=== PATIENT | female | born 1990 | race Two or more races ===

== ENCOUNTER 2016-08-30 10:43 | Emergency (ER) | payer OTHER ==
[~2016-08-30] VITALS: Ht 165.1 cm; Wt 77.0 kg
[~2016-08-30 10:43] MED LIST: FER325 PO; FOLI-49 PO; LEVO300T PO; NAPR-260 PO; PRENAT PO
[2016-08-30 10:46] VITALS: Ht 165.1 cm; Wt 77.0 kg
== END 2016-08-30 14:36 | disposition left against medical advice (07) ==
LOC: FTE 10:43
DX: Z53.21 Procedure and treatment not carried out due to patient leaving prior to being seen by health care provider (principal)

== ENCOUNTER 2016-08-31 12:55 | Day surgery (SDC) | payer OTHER ==
[~2016-08-31] VITALS: Ht 152.4 cm; Wt 76.0 kg
[2016-08-31] VITALS (18 sets, daily range): BP systolic 135–173; BP diastolic 78–93; PULSE 75–104; RESP 14–23; Ht 152.4 cm; Wt 76.0 kg
[~2016-08-31 12:55] MED LIST changes: +CEFAZOLIN 2 GM/50 ML (PMX) 50 ML IVPB ONE; +SOD CHLORIDE 0.9% 1,000 ML IV ONE
[2016-08-31] MEDS ORDERED: BUPIVACAINE 0.25% (MPF) 30 ML INJ ONE (15:24)
[2016-08-31] MEDS ORDERED: GLYCOPYRROLATE 0.4 MG INJ ONE ×2 (15:26→15:47)
[2016-08-31] MEDS ORDERED: LIDOCAINE 2% (SDV) 5 ML INJ ONE (15:26)
[2016-08-31] MEDS ORDERED: ROCURONIUM 50 MG INJ ONE (15:26)
[2016-08-31] MEDS ORDERED: SUCCINYLCHOLINE CHLORIDE 100 MG/5 ML SYG IV ONE (15:26)
[2016-08-31] MEDS ORDERED: NEOSTIGMINE 3 MG/3 ML SYRINGE ONE ×2 (15:26→15:47)
[2016-08-31] MEDS ORDERED: PROPOFOL 20 ML ONE (15:26)
[2016-08-31] MEDS ORDERED: MEPERIDINE 100 MG INJ ONE (15:29)
[2016-08-31] MEDS ORDERED: CEFAZOLIN 1 GM INJ ONE ×2 (15:47)
[2016-08-31] MEDS ORDERED: ONDANSETRON 4 MG INJ ONE (15:47)
[2016-08-31] MEDS ORDERED: METOCLOPRAMIDE 10 MG INJ ONE (15:47)
[2016-08-31] MEDS ORDERED: HYDROCODONE/APAP (5/325) TAB PO ONE (16:30)
[2016-08-31] MEDS: morphine (1 MG/ML) 10ML SYRINGE IV PRN ×2 (16:54→17:04)
[2016-08-31] MEDS ORDERED: METOCLOPRAMIDE 10 MG INJ IV PRN (17:00)
[2016-08-31] MEDS ORDERED: FENTAnyl 50 MCG/ML VIAL IV PRN ×2 (17:00)
[2016-08-31] MEDS ORDERED: HYDROmorphONE (0.2 MG/ML) 10ML SYG IV PRN ×2 (17:00)
[2016-08-31] MEDS ORDERED: morphine (1 MG/ML) 10ML SYRINGE IV PRN (17:00)
[2016-08-31] MEDS ORDERED: MIDAZOLAM 1 MG/ML 2 ML INJ IV PRN (17:00)
[2016-08-31] MEDS ORDERED: MEPERIDINE 25 MG INJ IV PRN (17:00)
[2016-08-31] MEDS ORDERED: EPHEDrine SULFATE 50 MG/5 ML SYG IV PRN (17:00)
[2016-08-31] MEDS ORDERED: ONDANSETRON 4 MG INJ IV PRN (17:00)
[2016-08-31] MEDS ORDERED: LABETALOL HCL 20MG INJ IV PRN (17:00)
[2016-08-31] MEDS ORDERED: hydrALAzine 20 MG INJ IV PRN (17:00)
[2016-08-31] MEDS ORDERED: DIPHENHYDRAMINE 50 MG INJ IV PRN (17:00)
--- NOTE | 2016-08-31 17:22 | OPR ---
DATE OF OPERATION: 08/31/2016 INDICATION: This is a 26-year-old female with symptomatic gallstones. She requests surgical excisi on. Risks, alternatives, benefits, and personnel were discussed with the patient. Patient expresse d understanding and consents to the operation. PREOPERATIVE DIAGNOSIS: Symptomatic gallstones. POSTOPERATIVE DIAGNOSIS: Symptomatic gallstones. OPERATION: Laparoscopic cholecystectomy. SURGEON: Lety Samuels MD NET FRONT END DEVELOPER: Kristian Mendez MD SPECIMENS: Gallbladder. COMPLICATIONS: None. ANESTHESIA: General. PROCEDURE: The patient was taken to the OR and prepped and draped in the usual sterile fashion. Farias rgical timeout was performed. IV antibiotics were given. Infraumbilical transverse incision is mad e with a 15 blade. Dissection cautery was taken to the fascia which was divided with curved [place] sc issors. An 0 Vicryl U-stitch was placed in the fascia. Balloon Kasie trocar was used. Pneumoperi toneum was established. Midepigastric 12 mm optical trocar and right upper quadrant and right upper flank 5 mm optical trocars placed under direct visualization. Upon initial inspection, there are a dhesions to the gallbladder which were taken down bluntly. The cystic duct was identified. The cri tical view was established. The cystic duct and cystic artery are divided using a 35 mm Casey vas cular load stapler, two fires. Gallbladder was taken off the gallbladder bed. There was good hemos tasis. Additional clips were placed for reinforcement. The gallbladder was retrieved using EndoCat ch bag. Ports were removed under direct visualization, 0 Vicryl U-stitch was tied down. Skin was c losed using skin rivas. Local anesthesia was injected and dry dressings were applied. Dictated By: LETY SAMUELS MD SB/NTS Conf#: [id number] DID#: [id number] CC: KRISTIAN MENDEZ MD;*EndCC*
== END 2016-08-31 18:12 | disposition home or self-care (01) ==
LOC: SDS 12:55
PROVIDERS: ATTEND Surgery
DX: K80.10 Calculus of gallbladder with chronic cholecystitis without obstruction (principal)
CPT/HCPCS: 47562; 84703; 88304; J0330; J0690; J2175; J2270; J2405; J2710; J2765; Z7512; Z7610

== ENCOUNTER 2016-09-01 12:40 | Emergency (ER) | payer OTHER ==
[~2016-09-01] VITALS: Wt 77.1 kg
[~2016-09-01 12:40] MED LIST changes: -CEFAZOLIN 2 GM/50 ML (PMX) 50 ML IVPB ONE; -SOD CHLORIDE 0.9% 1,000 ML IV ONE
[2016-09-01] MEDS ORDERED: ONDANSETRON 4 MG INJ IV STA (14:26)
[2016-09-01] MEDS ORDERED: morphine 4 MG/ML VIAL IV STA (14:26)
[2016-09-01] MEDS ORDERED: IBUPROFEN 600 MG TAB PO ONE (14:30)
[2016-09-01] MEDS ORDERED: SOD CHLORIDE 0.9% 1,000 ML IV ONE (15:00)
[2016-09-01 15:14] LABS: INR 0.95; PROTIME 12.7 Sec (12.2-14.2)
[2016-09-01 15:15] LABS: PARTIAL THROMBOPLASTIN TIME 33.2 Sec (25.0-35.0)
[2016-09-01 15:19] LABS: ALBUMIN 4.3 g/dl (3.3-4.9)
[2016-09-01 15:20] LABS: POTASSIUM 3.8 mmol/L (3.5-5.1)
[2016-09-01 15:22] LABS: ALBUMIN/GLOBULIN RATIO 1.04; BILIRUBIN,INDIRECT 0.4 mg/dl (0-1.1); BILIRUBIN,TOTAL 0.4 mg/dl (0.2-1.3); CREATININE 0.54 mg/dl (0.44-1.00); TOTAL PROTEIN 8.4 g/dl (6.1-8.1)
[2016-09-01 15:23] LABS: CALCIUM 9.6 mg/dl (8.4-10.2)
[2016-09-01 15:38] LABS: BASOPHILS % 0.2 % (0.0-2.0); EOSINOPHILS # 0.1 10^3/ul (0.0-0.5); EOSINOPHILS % 0.8 % (0.0-7.0); HEMATOCRIT 41.7 % (37.0-47.0); HEMOGLOBIN 14.2 g/dl (12.0-16.0); LYMPHOCYTES # 2.1 10^3/ul (0.8-2.9); LYMPHOCYTES % 16.2 % (15.0-51.0); MEAN CORPUSCULAR HEMOGLOBIN 30.5 pg (29.0-33.0); MEAN CORPUSCULAR HGB CONC 34.2 g/dl (32.0-37.0); MEAN CORPUSCULAR VOLUME 89.3 fl (82.0-101.0); MEAN PLATELET VOLUME 10.1 fl (7.4-10.4); MONOCYTE # 0.9 10^3/ul (0.3-0.9); MONOCYTES % 6.7 % (0.0-11.0); NEUTROPHILS % 76.1 % (39.0-77.0); PLATELET COUNT 298 10^3/UL (140-440); RED BLOOD COUNT 4.66 10^6/ul (4.20-5.40); UNCORRECTED WBC 13.1 10^3/ul (4.8-10.8); WHITE BLOOD COUNT 13.1 10^3/ul (4.8-10.8)
[2016-09-01] MEDS ORDERED: SOD CHLORIDE 0.9% 100 ML ONE (15:52)
[2016-09-01] MEDS ORDERED: IOHEXOL 300MG/ML 150 ML BTL ONE (15:52)
[2016-09-01 15:55] LABS: CONDITION 1
--- NOTE | 2016-09-01 16:24 | RADRPT ---
PROCEDURE: CT Abdomen and Pelvis with contrast. CLINICAL INDICATION: Fever, pain, recent cholecystectomy TECHNIQUE: CT of the abdomen and pelvis was performed on a multi-detector scanner following the un complicated IV administration of 100 cc of Omnipaque 300. Coronal and sagittal images were reformat bj from the axial data set. One or more of the following dose reduction techniques were used: auto mated exposure control, adjustment of the mA and/or kV according to patient size, use of iterative reconstruction technique. CTDI = 19.46 mGy. DLP = 1161.3 mGy-cm. COMPARISON: None. FINDINGS: CT abdomen: Bibasilar atelectasis is noted. The heart size is normal, without pericardial effusion. Gallbladde r is surgically absent. Small amount of fluid is present within the gallbladder fossa, likely resid ual postoperative fluid. Small amount of free intraperitoneal air is present, likely residual posto perative gas. Liver, biliary tree, pancreas, spleen, adrenal glands and kidneys are unremarkable. No urolithiasis or obstructive uropathy is identified. The stomach is grossly unremarkable. There is no abdominal aortic aneurysm or dissection. There is no retroperitoneal lymphadenopathy. The priya hepatis region is clear. CT pelvis: No bowel obstruction or abscess is identified. There is no evidence of bowel perforation. The appe ndix is well visualized and normal. No diverticulosis, diverticulitis or colitis is identified. Ur inary bladder, uterus and adnexa are grossly unremarkable. Small amount of pelvic free fluid is pre sent, likely residual postoperative fluid. No pelvic mass or lymphadenopathy is identified. The surrounding osseous structures are unremarkable. No osteolytic or osteoblastic lesion is detect ed. IMPRESSION: 1. Small amount of residual postoperative free air and free fluid are identified, as described abov e, within normal limits given recent cholecystectomy. No evidence of abscess, significant hematoma, or bowel perforation is identified. RPTAT: QQ .Alonzo Mendiola MD, MD Date Time Electronically viewed and signed by .Alonzo Mendiola MD, MD on 09/01/2016 16:23 .R/
[2016-09-01 16:29] LABS: ADD UMIC YES; URINE BILIRUBIN (Dip) NEGATIVE (NEGATIVE); URINE BLOOD (Dip) TRACE (NEGATIVE); URINE COLOR LT. YELLOW (YELLOW); URINE GLUCOSE (Dip) NEGATIVE (NEGATIVE); URINE KETONES (Dip) NEGATIVE (NEGATIVE); URINE LEUKOCYTE ESTERASE (Dip) NEGATIVE (NEGATIVE); URINE NITRITE (Dip) NEGATIVE (NEGATIVE); URINE TOTAL PROTEIN (Dip) TRACE (NEGATIVE); URINE UROBILINOGEN (Dip) 0.2 E.U./dL (0.1-1.0)
[2016-09-01 16:53] LABS: URINE RBCS 0-2 /HPF (0)
[2016-09-01 16:54] LABS: BACTERIA,URINE RARE; SQUAMOUS EPITHELIAL CELL,UR MANY
--- NOTE | 2016-09-01 17:31 | RADRPT ---
PROCEDURE: XR Chest. CLINICAL INDICATION: Postop chest x-ray with shortness of breath and fever. TECHNIQUE: Single frontal view of the chest was obtained COMPARISON: No. FINDINGS: The soft tissues are normal. The bony elements are normal. The heart, left side aorta, cardiomedias tinal silhouette, pulmonary vasculature and hilar structures are normal. The lungs are clear. The co stophrenic angles are normal. There is a suboptimal inspiratory effort. No acute infiltrate is iden tified. IMPRESSION: 1. Normal chest x-ray. RPTAT:AAJJ Physician Namita Date Time Electronically viewed and signed by Pablo Rosales Physician on 09/01/2016 17:31 /
--- NOTE | 2016-09-01 18:21 | ERD ---
ER Documentation Chief Complaint Date/Time DATE: 09/01/16 TIME: 18:09 Chief Complaint POST OP CHOLECYSTECTOMY YESTERDAY. FEVER AND MILD SOB . NO COUGHING HPI 26-year-old female complaining of fever and abdominal pain. Fever started today. Patient stated that she had cholecystectomy yesterday. She was given [place] for pain and he has not helped. The pain is worse when she is taking deep breath. Patient also complaining of "bleeding" from her surgical wound. She had vomited twice earlier today. Denies cough or shortness of breath. Denies dysuria. ROS All systems reviewed and are negative except as per history of present illness. Medications Home Meds Active Scripts Naproxen* (Naprosyn*) 500 Mg Tablet, 500 MG PO BID Y for PAIN AND/OR INFLAMMATION, #30 TAB Prov:TOBIAS GILBERT PA-C 07/10/16 Reported Medications Levothyroxine Sodium (Levothyroxine Sodium) 300 Mcg Tablet, 150 MCG PO BEFORE BREAKFAST, #30 TAB 05/22/16 Multivit/Min/Fol Ac/Iron/Pren* ( S*) 1 Tab Tab, 1 TAB PO DAILY, TAB 05/22/16 Ferrous Sulfate* (Ferrous Sulfate*) 325 Mg Tabec, 325 MG PO DAILY, TAB 05/22/16 Folic Acid* (Folic Acid*) 1 Mg Tablet, 1 MG PO DAILY, TAB 05/22/16 Allergies Allergies: Coded Allergies: No Known Allergies (Verified Allergy, Unknown, 08/31/16) PMhx/Soc History of Surgery: Yes (josie) Anesthesia Reaction: No Hx Neurological Disorder: No Hx Respiratory Disorders: No Hx Cardiac Disorders: Yes (HX HTN-- NOT ON MEDS) Hx Psychiatric Problems: No Hx Miscellaneous Medical Probl: Yes Hx Alcohol Use: No Hx Substance Use: No Hx Tobacco Use: No Smoking Status: Never smoker Physical Exam Vitals Vital Signs Date Time Temp Pulse Resp B/P Pulse Ox O2 Delivery O2 Flow Rate FiO2 09/01/16 12:52 101.2 120 22 140/85 97 Physical Exam General impression: Well-developed, well-nourished. Alert, oriented, appears to be in pain. Head: Normocephalic, atraumatic. Neck: Supple, nontender. No lymphanopathy. No nuchal rigidity. Respiration: Normal respiratory effort. Lungs clear to auscultate bilaterally. No wheezes, rales or rhonchi. Cardiovascular: Regular rate and rhythm. No murmurs or extra heart sounds. Abdomen: Slight serosanguineous discharge noted from the surgical wound. Abdomen diffusely tender. No masses or organomegaly. Bowel sounds normal. Neuro: Mental status normal, speech normal. RN COMPLIANCE grossly intact. Skin: Normal turgor. No rash or lesions. Psych: Normal mood and affect. Result Diagram: 09/01/16 1438 09/01/16 1438 Results 24 hrs Laboratory Tests Test 09/01/16 14:38 09/01/16 14:49 09/01/16 15:05 Activated Partial Thromboplast Time 33.2Sec Alanine Aminotransferase (ALT/SGPT) 484IU/L Albumin 4.3g/dl Albumin/Globulin Ratio 1.04 Alkaline Phosphatase 136IU/L Anion Gap 19 Aspartate Amino Transf (AST/SGOT) 242IU/L Basophils # 0.010^3/ul Basophils % 0.2% Blood Urea Nitrogen 7mg/dl Calcium Level 9.6mg/dl Carbon Dioxide Level 27mmol/L Chloride Level 99mmol/L Creatinine 0.54mg/dl Direct Bilirubin 0.00mg/dl Eosinophils # 0.110^3/ul Eosinophils % 0.8% Globulin 4.10g/dl Glucose Level 119mg/dl Hematocrit 41.7% Hemoglobin 14.2g/dl INR International Normalized Ratio 0.95 Indirect Bilirubin 0.4mg/dl Lipase 196U/L Lymphocytes # 2.110^3/ul Lymphocytes % 16.2% Mean Corpuscular Hemoglobin 30.5pg Mean Corpuscular Hemoglobin Concent 34.2g/dl Mean Corpuscular Volume 89.3fl Mean Platelet Volume 10.1fl Monocytes # 0.910^3/ul Monocytes % 6.7% Neutrophils # 10.010^3/ul Neutrophils % 76.1% Nucleated Red Blood Cells # 0.010^3/ul Nucleated Red Blood Cells % 0.0/100WBC Platelet Count 69349^3/UL Potassium Level 3.8mmol/L Prothrombin Time 12.7Sec Prothrombin Time Ratio 1.0 Red Blood Count 4.6610^6/ul Red Cell Distribution Width 13.0% Sodium Level 141mmol/L Total Bilirubin 0.4mg/dl Total Protein 8.4g/dl White Blood Count 13.110^3/ul Lactic Acid Level 1.1mmol/L Urine Bacteria RARE Urine Bilirubin NEGATIVE Urine Clarity CLEAR Urine Color LT. YELLOW Urine Glucose NEGATIVE% Urine Hemoglobin TRACE Urine Ketones NEGATIVE Urine Leukocyte Esterase NEGATIVE Urine Microscopic RBC 0-2/HPF Urine Microscopic WBC 2-5/HPF Urine Nitrite NEGATIVE Urine Specific [place] 1.010 Urine Squamous Epithelial Cells MANY Urine Total Protein TRACE Urine Urobilinogen 0.2 E.U./dL Urine pH 6.0 Current Medications Medications (Trade) Dose Ordered Sig/Riley Route PRN Reason Start Time Stop Time Status Last Admin Dose Admin Morphine Sulfate (morphine) 4 mg ONCE STAT IV 09/01/16 14:26 09/01/16 14:29 DC 09/01/16 14:43 Ondansetron HCl (Zofran Inj) 4 mg ONCE STAT IV 09/01/16 14:26 09/01/16 14:29 DC 09/01/16 14:43 Ibuprofen 600 mg 600 mg ONCE ONCE PO 09/01/16 14:30 09/01/16 14:31 DC 09/01/16 14:43 Sodium Chloride (NS) 1,000 ml @ 1,000 mls/hr Q1H ONCE IV 09/01/16 15:00 09/01/16 15:59 DC 09/01/16 14:47 IV Flush 10 ml 10 ml STK-MED ONCE .ROUTE 09/01/16 15:52 09/01/16 15:53 DC 09/01/16 16:18 Sodium Chloride (NS) 100 ml @ ud STK-MED ONCE .ROUTE 09/01/16 15:52 09/01/16 15:53 DC 09/01/16 16:18 Iohexol (Omnipaque 300mg/ ml) 150 ml STK-MED ONCE .ROUTE 09/01/16 15:52 09/01/16 15:53 DC 09/01/16 16:19 Procedures/MDM 26-year-old female who is 1 day post cholecystectomy present ED with fever and postop abdominal pain. Her temperature on arrival is 101.2. Ibuprofen given to the patient for fever reduction CBC showed an elevated white blood cell count at 13.1, otherwise unremarkable. LFTs are elevated, CMP otherwise unremarkable. Lipase negative. Lactate 1.1. Patient is not septic. UA is negative, chest x-ray negative. CT abdomen and pelvis with IV contrast showed a small amount of residual postoperative free air and free fluid, within normal limits given recent cholecystectomy. No evidence of abscess, significant hematoma or bowel perforation. Patient was given morphine and Zofran IV in the ED. After which, patient reports relief of pain, she appears to be much more comfortable. I have consulted with both patient's surgeon Dr. Samuels, and Dr. Salazar in the ED 1. Both agree that patient's testing results are within normal given her 1 day postop status. Patient may be discharged home for outpatient follow-up. Patient is advised to follow-up with her PCP and her surgeon. Departure Diagnosis: Primary Impression: Fever Fever type: unspecified Qualified Code: R50.9 - Fever, unspecified fever cause Additional Impression: Post-op pain Condition: Stable Patient Instructions: Fever Control (Adult), Post Op Wound Check, Pain Referrals: Kecia SAMUELS Additional Instructions: Call your primary care doctor TOMORROW for an appointment during the next 2-3 days.See the doctor sooner or return here if your condition worsens before your appointment time. MARY KAY ARANGO NP Sep 01, 2016 18:21
[2016-09-01 18:22] VITALS: BP 120/72; PULSE 96; RESP 18; TEMP 98.6
== END 2016-09-01 18:23 | disposition home or self-care (01) ==
LOC: FTE 12:40
DX: R50.9 Fever, unspecified (principal); G89.18 Other acute postprocedural pain; I10 Essential (primary) hypertension; R11.10 Vomiting, unspecified; R06.02 Shortness of breath; E03.9 Hypothyroidism, unspecified
CPT/HCPCS: 36415; 71010; 74177; 80053; 81001; 83605; 83690; 85025; 85610; 85730; 87040; 87086; 96374; 96375; J2270; J2405; Q9967; Z7502; Z7610; 81003

== ENCOUNTER 2016-09-06 23:13 | Inpatient (IN) | payer OTHER ==
[~2016-09-06] VITALS: Ht 335.3 cm; Wt 76.0 kg
[2016-09-06] MEDS ORDERED: morphine 4 MG/ML VIAL IV STA (23:17)
[2016-09-06] MEDS ORDERED: ONDANSETRON 4 MG INJ IV STA (23:17)
[2016-09-06] MEDS ORDERED: SOD CHLORIDE 0.9% 1,000 ML IV STA (23:17)
[2016-09-06] MEDS ORDERED: RANI150T5 PO (23:31)
[2016-09-07 00:07] LABS: ALBUMIN 4.2 g/dl (3.3-4.9); POTASSIUM 4.2 mmol/L (3.5-5.1)
[2016-09-07 00:09] LABS: ALBUMIN/GLOBULIN RATIO 0.97; BILIRUBIN,INDIRECT 0.1 mg/dl (0-1.1); BILIRUBIN,TOTAL 0.1 mg/dl (0.2-1.3); CREATININE 0.46 mg/dl (0.44-1.00); TOTAL PROTEIN 8.5 g/dl (6.1-8.1)
[2016-09-07 00:10] LABS: CALCIUM 10.1 mg/dl (8.4-10.2)
[2016-09-07 00:24] LABS: BASOPHILS % 0.2 % (0.0-2.0); EOSINOPHILS # 0.1 10^3/ul (0.0-0.5); EOSINOPHILS % 1.1 % (0.0-7.0); HEMATOCRIT 37.5 % (37.0-47.0); HEMOGLOBIN 12.9 g/dl (12.0-16.0); LYMPHOCYTES # 1.7 10^3/ul (0.8-2.9); LYMPHOCYTES % 20.2 % (15.0-51.0); MEAN CORPUSCULAR HEMOGLOBIN 30.5 pg (29.0-33.0); MEAN CORPUSCULAR HGB CONC 34.4 g/dl (32.0-37.0); MEAN CORPUSCULAR VOLUME 88.5 fl (82.0-101.0); MEAN PLATELET VOLUME 9.5 fl (7.4-10.4); MONOCYTE # 0.6 10^3/ul (0.3-0.9); MONOCYTES % 6.9 % (0.0-11.0); NEUTROPHIL # 6.1 10^3/ul (1.6-7.5); NEUTROPHILS % 71.6 % (39.0-77.0); PLATELET COUNT 361 10^3/UL (140-440); RED BLOOD COUNT 4.24 10^6/ul (4.20-5.40); RED CELL DISTRIBUTION WIDTH 12.5 % (11.5-14.5); UNCORRECTED WBC 8.6 10^3/ul (4.8-10.8); WHITE BLOOD COUNT 8.6 10^3/ul (4.8-10.8)
[2016-09-07 00:25] LABS: CONDITION 1
[2016-09-07 01:13] LABS: ADD UMIC NO; URINE BILIRUBIN (Dip) NEGATIVE (NEGATIVE); URINE BLOOD (Dip) NEGATIVE (NEGATIVE); URINE COLOR LT. YELLOW (YELLOW); URINE GLUCOSE (Dip) NEGATIVE (NEGATIVE); URINE KETONES (Dip) NEGATIVE (NEGATIVE); URINE LEUKOCYTE ESTERASE (Dip) NEGATIVE (NEGATIVE); URINE NITRITE (Dip) NEGATIVE (NEGATIVE); URINE TOTAL PROTEIN (Dip) NEGATIVE (NEGATIVE); URINE UROBILINOGEN (Dip) 0.2 E.U./dL (0.1-1.0)
--- NOTE | 2016-09-07 01:46 | ERA ---
ER Documentation Chief Complaint Date/Time DATE: 09/07/16 TIME: 01:45 Chief Complaint bilat flank pain,GB surgery last 08/31/16 HPI This is a 25 mg of bilateral flank pain radiating to upper abdomen for the past 24 hours. Pain is mild to moderate in intensity. Denies any fevers or chills. Denies any other current complaints. Patient is one-week status post cholecystectomy. No vomiting. ROS All systems reviewed and are negative except as per history of present illness. Medications Home Meds Active Scripts Naproxen* (Naprosyn*) 500 Mg Tablet, 500 MG PO BID Y for PAIN AND/OR INFLAMMATION, #30 TAB Prov:TOBIAS GILBERT PA-C 07/10/16 Reported Medications Ranitidine Hcl* (Ranitidine Hcl*) 150 Mg Tablet, 150 MG PO Q12 for GASTROINTESTINAL UPSET, #60 TAB 09/06/16 Levothyroxine Sodium (Levothyroxine Sodium) 300 Mcg Tablet, 150 MCG PO BEFORE BREAKFAST, #30 TAB 05/22/16 Multivit/Min/Fol Ac/Iron/Pren* ( S*) 1 Tab Tab, 1 TAB PO DAILY, TAB 05/22/16 Ferrous Sulfate* (Ferrous Sulfate*) 325 Mg Tabec, 325 MG PO DAILY, TAB 05/22/16 Folic Acid* (Folic Acid*) 1 Mg Tablet, 1 MG PO DAILY, TAB 05/22/16 Allergies Allergies: Coded Allergies: No Known Allergies (Verified Allergy, Unknown, 09/06/16) PMhx/Soc History of Surgery: Yes (josie) Anesthesia Reaction: No Hx Neurological Disorder: No Hx Respiratory Disorders: No Hx Cardiac Disorders: Yes (HX HTN-- NOT ON MEDS) Hx Psychiatric Problems: No Hx Miscellaneous Medical Probl: Yes Hx Alcohol Use: No Hx Substance Use: No Hx Tobacco Use: No Smoking Status: Never smoker Physical Exam Vitals Vital Signs Date Time Temp Pulse Resp B/P Pulse Ox O2 Delivery O2 Flow Rate FiO2 09/06/16 23:16 97.5 71 18 131/73 99 Physical Exam Const: [] Head: Atraumatic Eyes: Normal Conjunctiva ENT: Normal External Ears, Nose and Mouth. Neck: Full range of motion..~ No meningismus. Resp: Clear to auscultation bilaterally Cardio: Regular rate and rhythm, no murmurs Abd: Soft, non tender, non distended. Normal bowel sounds Skin: No petechiae or rashes Back: No midline or flank tenderness Ext: No cyanosis, or edema Neur: Awake and alert Psych: Normal Mood and Affect Result Diagram: 09/06/16 2345 09/06/16 2345 Results 24 hrs Laboratory Tests Test 09/06/16 23:45 09/07/16 00:30 Alanine Aminotransferase (ALT/SGPT) 556IU/L Albumin 4.2g/dl Albumin/Globulin Ratio 0.97 Alkaline Phosphatase 532IU/L Anion Gap 21 Aspartate Amino Transf (AST/SGOT) 602IU/L Basophils # 0.010^3/ul Basophils % 0.2% Blood Urea Nitrogen 8mg/dl Calcium Level 10.1mg/dl Carbon Dioxide Level 26mmol/L Chloride Level 96mmol/L Creatinine 0.46mg/dl Direct Bilirubin 0.00mg/dl Eosinophils # 0.110^3/ul Eosinophils % 1.1% Globulin 4.30g/dl Glucose Level 158mg/dl Hematocrit 37.5% Hemoglobin 12.9g/dl Indirect Bilirubin 0.1mg/dl Lipase 558U/L Lymphocytes # 1.710^3/ul Lymphocytes % 20.2% Mean Corpuscular Hemoglobin 30.5pg Mean Corpuscular Hemoglobin Concent 34.4g/dl Mean Corpuscular Volume 88.5fl Mean Platelet Volume 9.5fl Monocytes # 0.610^3/ul Monocytes % 6.9% Neutrophils # 6.110^3/ul Neutrophils % 71.6% Nucleated Red Blood Cells # 0.010^3/ul Nucleated Red Blood Cells % 0.0/100WBC Platelet Count 24228^3/UL Potassium Level 4.2mmol/L Red Blood Count 4.2410^6/ul Red Cell Distribution Width 12.5% Sodium Level 139mmol/L Total Bilirubin 0.1mg/dl Total Protein 8.5g/dl White Blood Count 8.610^3/ul Urine Bilirubin NEGATIVE Urine Clarity CLEAR Urine Color LT. YELLOW Urine Glucose NEGATIVE% Urine Hemoglobin NEGATIVE Urine Ketones NEGATIVE Urine Leukocyte Esterase NEGATIVE Urine Nitrite NEGATIVE Urine Specific [place] <=1.005 Urine Total Protein NEGATIVE Urine Urobilinogen 0.2 E.U./dL Urine pH 5.5 Current Medications Medications (Trade) Dose Ordered Sig/Riley Route PRN Reason Start Time Stop Time Status Last Admin Dose Admin Sodium Chloride (NS) 1,000 ml @ 1,000 mls/hr Q1H STAT IV 09/06/16 23:17 09/07/16 00:16 DC 09/06/16 23:59 Morphine Sulfate (morphine) 4 mg ONCE STAT IV 09/06/16 23:17 09/06/16 23:18 DC 09/06/16 23:54 Ondansetron HCl (Zofran Inj) 4 mg ONCE STAT IV 09/06/16 23:17 09/06/16 23:18 DC 09/06/16 23:53 Procedures/MDM Medical decision-makin female looks really have gallstone pancreatitis with elevation of lipase along with elevation of LFTs. Patient will be admitted to hospitalist for a GI consult. Departure Diagnosis: Primary Impression: Choledocholithiasis Additional Impression: Pancreatitis Qualified Code: K85.90 - Acute pancreatitis, unspecified complication status, unspecified pancreatitis type Condition: Serious ALBERTO PHOENIX Sep 07, 2016 01:46
--- NOTE | 2016-09-07 02:55 | RADRPT ---
PROCEDURE: CT ABDOMEN/PELVIS WITHOUT CONTRAST CLINICAL INDICATION: 26-year-old female with abdominal pain. TECHNIQUE: The study was performed utilizing a [employer] VCT 64-slice CT scanner. Direct axia l sections were obtained through the abdomen and pelvis without the use of intravenous contrast mate rial. Sagittal and coronal reformations were obtained. Automated exposure control and iterative emely nstruction techniques were utilized for this examination. The [facility] CTD/vol = 16.4 mGy; Total Exam DLP = 973.0 mGy-cm. COMPARISON: CT abdomen/pelvis September 01, 2016. FINDINGS: There is minimal bibasilar subsegmental atelectasis. There is no evidence for significant pleural ef fusion. The liver has a normal size and contour without focal areas of abnormal density. No intrahe patic nor extrahepatic biliary ductal dilatation is seen. Surgical clips are seen within the gallbla dder fossa from prior cholecystectomy. There is minimal residual infiltration and fluid which has d ecreased in the interval. The pancreas is without areas of abnormal attenuation. The spleen is iden tified and has a normal size without abnormal density. The adrenal glands are unremarkable. The kidn eys are without abnormal density. No hydroureteronephrosis nor nephroureterolithiasis is evident. Th e urinary bladder contains urine. Surgical clips are seen within the right upper and midline ventral abdominal wall with minimal subcutaneous gas and the patient's recent surgery. Surgical clips are seen within the periumbilical region with a small residual linear focus of fluid collection measuring approximately 1.2 x 3.2 x 1.5 cm most likely representing a postoperative seroma without i nterval change. There is minimal residual gas identified within the left lower rectus sheath region on axial image 3-141. There is mild retained stool within the ascending and sigmoid colon without o bstruction.. The appendix is visualized and is without abnormal thickening or surrounding inflammat ory reaction. The uterus is unremarkable. There is no significant pelvic free fluid. The aortoilia c vessels are without aneurysmal dilatation. The osseous structures are intact. IMPRESSION: 1. Minimal bibasilar subsegmental atelectasis. 2. Status post cholecystectomy with postoperative changes and minimal residual fluid and infiltrati on within the gallbladder fossa however this has decreased in the interval. 3. Surgical clips within the upper abdomen and periumbilical region. Noted is a small residual flu id collection within the periumbilical region without interval change most likely representing a pos toperative seroma. 4. Minimal residual gas within the left lower rectum sheath region from the patient's surgery. 5. Mild retained stool without obstruction. 6. No CT evidence for appendicitis. .Alvarado Mcdermott MD, MD Date Time Electronically viewed and signed by .Alvarado Mcdermott MD, MD on 09/07/2016 02:55 .M/
[2016-09-07 04:07] VITALS: Ht 335.3 cm; Wt 76.0 kg
[2016-09-07 04:08] VITALS: BP 115/60; PULSE 79; RESP 14
--- NOTE | 2016-09-07 04:15 | HP ---
Date/Time of Note Date/Time of Note DATE: 09/07/16 TIME: 04:05 Assessment/Plan VTE Prophylaxis VTE Prophylaxis Intervention: SCD's Assessment/Plan Assessment/Plan 26 yo F 1 wk post op lap josie for symptomatic gallstones with 1. Persistent abd / mid back pain likely 2/2 #2 2. Acute pancreatitis and elevated transaminases concerning for Possibly retained gallstone pancreatitis 3. r/o choledocholithiasis 4. Hypothyroidism: chronic PLAN: admit / NPO / IVF / pain control / supportive care MRCP / GI consult continue home levothyroxine Further evaluation and treatment will be based on clinical course Total time spent on this evaluation >35mins HPI/ROS Admit Date/Time Admit Date/Time Sep 07, 2016 at 01:44 Hx of Present Illness Presenting complaint: Mid back pain History of presenting complaints: Layton christianise a 26-year-old female who was first diagnosed with symptomatic gallstones back in May 2016. She was symptomatically treated in the emergency room at [facility] and referred to an outpatient surgeon. She underwent a laparoscopic cholecystectomy 2016. Please note that she was at the time of her diagnosis. Surgery was done after delivery of her baby. Postoperatively however, patient reports having persistent epigastric abdominal pain sometimes radiating to have back sometimes not, intractable nausea, and occasional subjective fever. She was seen in the emergency room her 1ST day post op, she was treated for her pain, and given prescriptions for pain medicines. She been managing her pain with a combination of NSAIDs and antacids, until yesterday. Pain became localized in her midback and was non-resolving. It was finally relieved by intravenous morphine given in the ER. Pain also recurs now when morphine wanes. Preliminary emergency room workup is consistent with pancreatitis as well as a worsened transaminitis concerning for a probable retained gallstone causing choledocholithiasis. She is being admitted for further workup, as well as pain and symptom control. ROS 12 point review if systems was done and pertinent findings are as noted. PMH/Family/Social Past Medical History Medical History: hypothyroid Past Surgical History * Lap josie 08/31/16 Family History Significant Family History: no pertinent family hx Social History Alcohol Use: none Smoking Status: Never smoker Drug Use: none Exam/Review of Systems Vital Signs Vitals VS - Last 72 Hours, by Label Date Time Temp Pulse Resp B/P Pulse Ox O2 Delivery O2 Flow Rate FiO2 09/06/16 23:16 97.5 71 18 131/73 99 Vital Signs Date Time Temp Pulse Resp B/P Pulse Ox O2 Delivery O2 Flow Rate FiO2 09/06/16 23:16 97.5 71 18 131/73 99 Exam Constitutional: alert, oriented Psych: anxiety Head: atraumatic, normocephalic Eyes: PERRL, No icteric ENMT: intubated Neck: supple Respiratory: clear to auscultation, normal air movement Cardiovascular: nl pulses, regular rate and rhythm Gastrointestinal: bowel sounds, non-tender, soft, surgical scars (surgical rivas in place over well healed scars with no evidence of acute inflammation or infection) Genitourinary - Male: No CVA tenderness Extremities: No edema Neurological: lethargic, nl mental status, nl speech, No focal weakness Skin: No rash or lesions Labs Result Diagram: 09/06/16 2345 09/06/16 2345 Procedures Procedures Laboratory Tests Test 09/06/16 23:45 09/07/16 00:30 Alanine Aminotransferase (ALT/SGPT) 556IU/L Albumin 4.2g/dl Albumin/Globulin Ratio 0.97 Alkaline Phosphatase 532IU/L Anion Gap 21 Aspartate Amino Transf (AST/SGOT) 602IU/L Basophils # 0.010^3/ul Basophils % 0.2% Blood Urea Nitrogen 8mg/dl Calcium Level 10.1mg/dl Carbon Dioxide Level 26mmol/L Chloride Level 96mmol/L Creatinine 0.46mg/dl Direct Bilirubin 0.00mg/dl Eosinophils # 0.110^3/ul Eosinophils % 1.1% Globulin 4.30g/dl Glucose Level 158mg/dl Hematocrit 37.5% Hemoglobin 12.9g/dl Indirect Bilirubin 0.1mg/dl Lipase 558U/L Lymphocytes # 1.710^3/ul Lymphocytes % 20.2% Mean Corpuscular Hemoglobin 30.5pg Mean Corpuscular Hemoglobin Concent 34.4g/dl Mean Corpuscular Volume 88.5fl Mean Platelet Volume 9.5fl Monocytes # 0.610^3/ul Monocytes % 6.9% Neutrophils # 6.110^3/ul Neutrophils % 71.6% Nucleated Red Blood Cells # 0.010^3/ul Nucleated Red Blood Cells % 0.0/100WBC Platelet Count 95477^3/UL Potassium Level 4.2mmol/L Red Blood Count 4.2410^6/ul Red Cell Distribution Width 12.5% Sodium Level 139mmol/L Total Bilirubin 0.1mg/dl Total Protein 8.5g/dl White Blood Count 8.610^3/ul Urine Bilirubin NEGATIVE Urine Clarity CLEAR Urine Color LT. YELLOW Urine Glucose NEGATIVE% Urine Hemoglobin NEGATIVE Urine Ketones NEGATIVE Urine Leukocyte Esterase NEGATIVE Urine Nitrite NEGATIVE Urine Specific [place] <=1.005 Urine Total Protein NEGATIVE Urine Urobilinogen 0.2 E.U./dL Urine pH 5.5 ER INTERVENTIONS Medications (Trade) Dose Ordered Sig/Riley Route PRN Reason Start Time Stop Time Status Last Admin Dose Admin Sodium Chloride (NS) 1,000 ml @ 1,000 mls/hr Q1H STAT IV 09/06/16 23:17 09/07/16 00:16 DC 09/06/16 23:59 1,000 MLS/HR Morphine Sulfate (morphine) 4 mg ONCE STAT IV 09/06/16 23:17 09/06/16 23:18 DC 09/06/16 23:54 4 MG Ondansetron HCl (Zofran Inj) 4 mg ONCE STAT IV 09/06/16 23:17 09/06/16 23:18 DC 09/06/16 23:53 4 MG PROCEDURE: CT ABDOMEN/PELVIS WITHOUT CONTRAST CLINICAL INDICATION: 26-year-old female with abdominal pain. TECHNIQUE: The study was performed utilizing a Top100.cnT 64-slice CT scanner. Direct axial sections were obtained through the abdomen and pelvis without the use of intravenous contrast material. Sagittal and coronal reformations were obtained. Automated exposure control and iterative reconstruction techniques were utilized for this examination. The images were reviewed on a PACS workstation. CTD/vol = 16.4 mGy; Total Exam DLP = 973.0 mGy -cm. COMPARISON: CT abdomen/pelvis September 01, 2016. FINDINGS: There is minimal bibasilar subsegmental atelectasis. There is no evidence for significant pleural effusion. The liver has a normal size and contour without focal areas of abnormal density. No intrahepatic nor extrahepatic biliary ductal dilatation is seen. Surgical clips are seen within the gallbladder fossa from prior cholecystectomy. There is minimal residual infiltration and fluid which has decreased in the interval. The pancreas is without areas of abnormal attenuation. The spleen is identified and has a normal size without abnormal density. The adrenal glands are unremarkable. The kidneys are without abnormal density. No hydroureteronephrosis nor nephroureterolithiasis is evident. The urinary bladder contains urine. Surgical clips are seen within the right upper and midline ventral abdominal wall with minimal subcutaneous gas and the patient 's recent surgery. Surgical clips are seen within the periumbilical region with a small residual linear focus of fluid collection measuring approximately 1.2 x 3.2 x 1.5 cm most likely representing a postoperative seroma without interval change. There is minimal residual gas identified within the left lower rectus sheath region on axial image 3-141. There is mild retained stool within the ascending and sigmoid colon without obstruction.. The appendix is visualized and is without abnormal thickening or surrounding inflammatory reaction. The uterus is unremarkable. There is no significant pelvic free fluid. The aortoiliac vessels are without aneurysmal dilatation. The osseous structures are intact. IMPRESSION: 1. Minimal bibasilar subsegmental atelectasis. 2. Status post cholecystectomy with postoperative changes and minimal residual fluid and infiltration within the gallbladder fossa however this has decreased in the interval. 3. Surgical clips within the upper abdomen and periumbilical region. Noted is a small residual fluid collection within the periumbilical region without interval change most likely representing a postoperative seroma. 4. Minimal residual gas within the left lower rectum sheath region from the patient's surgery. 5. Mild retained stool without obstruction. 6. No CT evidence for appendicitis. .Alvarado Mcdermott MD, MD Date Time Electronically viewed and signed by .Alvarado Mcdermott MD, MD on 09/07/2016 02:55 PROCEDURE: XR Chest. CLINICAL INDICATION: Postop chest x-ray with shortness of breath and fever. TECHNIQUE: Single frontal view of the chest was obtained COMPARISON: No. FINDINGS: The soft tissues are normal. The bony elements are normal. The heart, left side aorta, cardiomediastinal silhouette, pulmonary vasculature and hilar structures are normal. The lungs are clear. The costophrenic angles are normal. There is a suboptimal inspiratory effort. No acute infiltrate is identified. IMPRESSION: 1. Normal chest x-ray. RPTAT:AAJJ Physician Namita Date Time Electronically viewed and signed by Physician Namita on 09/01/2016 17:31 DATE OF OPERATION: 08/31/2016 INDICATION: This is a 26-year-old female with symptomatic gallstones. She requests surgical excision. Risks, alternatives, benefits, and personnel were discussed with the patient. Patient expressed understanding and consents to the operation. PREOPERATIVE DIAGNOSIS: Symptomatic gallstones. POSTOPERATIVE DIAGNOSIS: Symptomatic gallstones. OPERATION: Laparoscopic cholecystectomy. SURGEON: Lety Quintanilla MD MUSIC LEADER: Kristian Anderson MD SPECIMENS: Gallbladder. COMPLICATIONS: None. ANESTHESIA: General. PROCEDURE: The patient was taken to the OR and prepped and draped in the usual sterile fashion. Surgical timeout was performed. IV antibiotics were given. Infraumbilical transverse incision is made with a 15 blade. Dissection cautery was taken to the fascia which was divided with curved H[place]os scissors. An 0 Vicryl U-stitch was placed in the fascia. Balloon Kasie trocar was used. Pneumoperitoneum was established. Midepigastric 12 mm optical trocar and right upper quadrant and right upper flank 5 mm optical trocars placed under direct visualization. Upon initial inspection, there are adhesions to the gallbladder which were taken down bluntly. The cystic duct was identified. The critical view was established. The cystic duct and cystic artery are divided using a 35 mm [place] vascular load stapler, two fires. Gallbladder was taken off the gallbladder bed. There was good hemostasis. Additional clips were placed for reinforcement. The gallbladder was retrieved using EndoCatch bag. Ports were removed under direct visualization, 0 Vicryl U-stitch was tied down. Skin was closed using skin rivas. Local anesthesia was injected and dry dressings were applied. Dictated By: TYRELL ACUNA MD Sep 07, 2016 04:15
[2016-09-07] MEDS ORDERED: ONDANSETRON 4 MG INJ IV PRN ×2 (04:30→20:30)
[2016-09-07] MEDS: DEXTROSE 5%-0.45% NACL 1,000 ML IV SCH ×3 (04:37→20:30)
[2016-09-07] MEDS ORDERED: LEVOTHYROXINE 150 MCG TAB PO SCH (06:00)
[2016-09-07] MEDS: LEVOTHYROXINE 100 MCG TAB PO SCH (06:00)
[2016-09-07 07:33] LABS: BASOPHILS % 0.5 % (0.0-2.0); EOSINOPHILS # 0.1 10^3/ul (0.0-0.5); EOSINOPHILS % 2.2 % (0.0-7.0); HEMATOCRIT 35.7 % (37.0-47.0); HEMOGLOBIN 12.3 g/dl (12.0-16.0); LYMPHOCYTES % 40.3 % (15.0-51.0); MEAN CORPUSCULAR HEMOGLOBIN 30.5 pg (29.0-33.0); MEAN CORPUSCULAR HGB CONC 34.3 g/dl (32.0-37.0); MEAN PLATELET VOLUME 9.2 fl (7.4-10.4); MONOCYTE # 0.4 10^3/ul (0.3-0.9); MONOCYTES % 8.2 % (0.0-11.0); NEUTROPHIL # 2.4 10^3/ul (1.6-7.5); NEUTROPHILS % 48.8 % (39.0-77.0); PLATELET COUNT 320 10^3/UL (140-440); RED BLOOD COUNT 4.02 10^6/ul (4.20-5.40); RED CELL DISTRIBUTION WIDTH 12.3 % (11.5-14.5); UNCORRECTED WBC 4.9 10^3/ul (4.8-10.8); WHITE BLOOD COUNT 4.9 10^3/ul (4.8-10.8)
[2016-09-07 07:34] LABS: CONDITION 1
[2016-09-07 07:48] VITALS: BP 116/61; RESP 18
[2016-09-07 07:49] LABS: ALBUMIN 3.6 g/dl (3.3-4.9); CHLORIDE 103 mmol/L (97-110)
[2016-09-07 07:50] LABS: POTASSIUM 3.9 mmol/L (3.5-5.1); SODIUM 142 mmol/L (135-144)
[2016-09-07 07:51] LABS: AMYLASE 78 U/L (11-123)
[2016-09-07 07:52] LABS: ALBUMIN/GLOBULIN RATIO 0.97; ALKALINE PHOSPHATASE 455 IU/L (42-121); ANION GAP 15 (8-16); BILIRUBIN,INDIRECT 0.2 mg/dl (0-1.1); BILIRUBIN,TOTAL 0.2 mg/dl (0.2-1.3); BLOOD UREA NITROGEN 7 mg/dl (7-20); CARBON DIOXIDE 28 mmol/L (21-31); CREATININE 0.49 mg/dl (0.44-1.00); TOTAL PROTEIN 7.3 g/dl (6.1-8.1)
[2016-09-07 07:53] LABS: ALANINE AMINOTRANSFERASE 754 IU/L (13-69); CALCIUM 9.3 mg/dl (8.4-10.2); GLUCOSE 127 mg/dl (70-220); MAGNESIUM 1.8 mg/dl (1.7-2.5)
[2016-09-07 08:11] LABS: ASPARTATE AMINO TRANSFERASE 787 IU/L (15-46)
[2016-09-07] MEDS: FAMOTIDINE 20 MG TAB PO SCH ×2 (08:38→21:25)
[2016-09-07] MEDS: DOCUSATE SODIUM 100 MG CAP PO SCH ×2 (08:39→21:24)
[2016-09-07] MEDS: FERROUS SULFATE (EC) 325 MG TAB PO SCH (08:40)
--- NOTE | 2016-09-07 13:30 | RADRPT ---
PROCEDURE: MRI abdomen without contrast; MRCP CLINICAL INDICATION: abdominal pain TECHNIQUE: Multiplanar, multisequence imaging of the abdomen was obtained. Imaging includes axial T2, T2 fat sat, in and out of phase gradient images, and fat saturated T1-weighted images. In addition, a dedicated high T2 signal intensity MRCP images were obtained in multiple planes with 3-D reconstructions. COMPARISON: CT 09/07/2016 FINDINGS: The gallbladder is resected and there is trace fluid seen in the gallbladder fossa which is indeterm inate. There is a dilated cystic duct remnant measuring up to 14 mm. There is mild dilatation of t he intrahepatic and extrahepatic biliary ductal system and the common duct measures up to 8 mm in di ameter. There is focal shouldering of the distal common duct as it enters the ampulla with a rounde d area of low signal measuring 6 mm that is indeterminate. This could represent a fold within the d uodenum adjacent to the ampulla or could represent a stone in the distal duct. The pancreatic duct is nondilated. There is trace fat stranding seen around the pancreatic head with trace fluid. There is no focal pa ncreatic lesion or evidence of fluid collection. Flow void is seen in the portal vein and splenic v ein without visible narrowing. There is uniform signal intensity of the liver without evidence of mass. The kidneys appear symmetric without hydronephrosis or mass. The adrenal glands moderate within nor mal limits. There is no evidence of bowel obstruction . There is a mildly fecal filled colon. The aorta is unr emarkable. There are no enlarged lymph nodes. There is no acute osseous abnormality. IMPRESSION: Surgical changes of cholecystectomy is seen with trace fluid in the gallbladder fossa there is indet erminate and may represent postsurgical fluid. Biliary fluid is not excluded given recent surgery an d can be further assessed with nectar medicine scan as clinically warranted. There is mild dilatation of the intrahepatic biliary ducts and of the common duct extending down to the ampulla. There is a rounded area of low signal at the level of the ampulla within the common du ct and this could represent either distal stone or focal fold of the duodenum at the ampulla. This can be better assessed with ERCP. Mild fat stranding is seen of the pancreatic head which could represent mild pancreatic inflammation and can be correlated with amylase/lipase levels. Fecal filled colon. RPTAT: AA .Juliane Hernandez MD, MD Date Time Electronically viewed and signed by .Juliane Hernandez MD, MD on 09/07/2016 13:30 .J/
[2016-09-07] MEDS: morphine 2 MG INJ IV PRN ×2 (15:47→16:39)
[2016-09-07 17:35] LABS: THYROID STIMULATING HORMONE < 0.015 MIU/L (0.465-4.680)
--- NOTE | 2016-09-07 19:52 | CONS ---
Date/Time of Note Date/Time of Note DATE: 09/07/16 TIME: 19:42 Assessment/Plan Assessment/Plan Additional Assessment/Plan Assessment: * Probable choledocholithiasis * Rule out bile leak * Post laparoscopic cholecystectomy 08/31/2016 * Hypothyroidism Plan: * Continue pain management and antibiotics * Proceed with ERCP possible sphincterotomy tomorrow afternoon. Patient has been informed of procedure its indications, potential risks and complications as well as alternatives. She is agreeable to proceed Consultation Date/Type/Reason Admit Date/Time Sep 07, 2016 at 01:44 Date of Consultation: Sep 07, 2016 Hx of Present Illness 26-year-old female hospitalized with complaints of significant epigastric and right upper quadrant pain, the patient is status post laparoscopic cholecystectomy 08/31/2016, she was discharged and shortly thereafter developed epigastric abdominal pain which has progressively gotten worse. Upon evaluation in the emergency room the patient was found to have very significant elevation of AST ALT and alkaline phosphatase, bilirubin is normal. MRCP was obtained with the following findings: MRCP 09/07/16 >Surgical changes of cholecystectomy is seen with trace fluid in the gallbladder fossa there is indeterminate and may represent postsurgical fluid. Biliary fluid is not excluded given recent surgery and can be further assessed with nectar medicine scan as clinically warranted. >There is mild dilatation of the intrahepatic biliary ducts and of the common duct extending down to the ampulla. There is a rounded area of low signal at the level of the ampulla within the common duct and this could represent either distal stone or focal fold of the duodenum at the ampulla. This can be better assessed with ERCP. >Mild fat stranding is seen of the pancreatic head which could represent mild pancreatic inflammation and can be correlated with amylase/lipase levels. >Fecal filled colon. The patient continues to complain of significant epigastric and right upper quadrant pain, it is only partially controlled with current pain management. The patient also complains of persistent nausea. I have advised patient of need of ERCP, explained the procedures potential risks benefits and alternatives. The patient is agreeable to proceed. ERCP was scheduled for tomorrow late afternoon pending availability of OR time in fluoroscopy. Constitutional: other (Severe pain), poor po Eyes: no complaints ENT: no complaints Respiratory: no complaints Cardiovascular: no complaints Gastrointestinal: constipation, decreased appetite, nausea, pain (Epigastric right upper quadrant), vomiting, No diarrhea Genitourinary: no complaints Musculoskeletal: no complaints Skin: no complaints Neurologic: no complaints Endocrine: no complaints Lymphatic: no complaints Psychological: anxiety Immunologic: no complaints Past Medical History Medical History: hypothyroid Past Surgical History * Laparoscopic cholecystectomy 08/31/2016 Family History Significant Family History: no pertinent family hx Social History Alcohol Use: none Smoking Status: Never smoker Drug Use: none Exam/Review of Systems Vital Signs Vitals Vital Signs Date Time Temp Pulse Resp B/P Pulse Ox O2 Delivery O2 Flow Rate FiO2 09/07/16 07:48 97.8 79 18 116/61 97 09/07/16 04:08 Room Air Intake and Output 09/06/16 09/06/16 09/07/16 15:00 23:00 07:00 Intake Total 0 ml Balance 0 ml Exam Constitutional: alert, distress (Moderate), oriented, well developed Psych: anxiety Head: atraumatic, normocephalic Eyes: EOMI, PERRL, nl conjunctiva, nl lids, nl sclera ENMT: nl external ears & nose, nl lips & teeth, nl nasal mucosa & septum Neck: non-tender, supple Respiratory: clear to auscultation, normal air movement Cardiovascular: nl pulses, regular rate and rhythm Gastrointestinal: bowel sounds, distended, soft, tender (Moderate to severe tenderness epigastrium and right upper quadrant area), No rebound or guarding Musculoskeletal: nl extremities to inspection Extremities: normal pulses Skin: nl turgor, No rash or lesions Lymph: nl lymph nodes Results Result Diagram: 09/07/16 0706 09/07/16 0706 Results 24 hrs Laboratory Tests Test 09/06/16 23:45 09/07/16 00:30 09/07/16 07:06 Alanine Aminotransferase (ALT/SGPT) 556 H 754 H Albumin 4.2 3.6 Albumin/Globulin Ratio 0.97 0.97 Alkaline Phosphatase 532 H 455 H Anion Gap 21 H 15 Aspartate Amino Transf (AST/SGOT) 602 H 787 H Basophils # 0.0 0.0 Basophils % 0.2 0.5 Blood Urea Nitrogen 8 7 Calcium Level 10.1 9.3 Carbon Dioxide Level 26 28 Chloride Level 96 L 103 Creatinine 0.46 0.49 Direct Bilirubin 0.00 0.00 Eosinophils # 0.1 0.1 Eosinophils % 1.1 2.2 Globulin 4.30 H 3.70 H Glucose Level 158 127 Hematocrit 37.5 35.7 L Hemoglobin 12.9 12.3 Indirect Bilirubin 0.1 0.2 Lipase 558 H 377 H Lymphocytes # 1.7 2.0 Lymphocytes % 20.2 40.3 Mean Corpuscular Hemoglobin 30.5 30.5 Mean Corpuscular Hemoglobin Concent 34.4 34.3 Mean Corpuscular Volume 88.5 89.0 Mean Platelet Volume 9.5 9.2 Monocytes # 0.6 0.4 Monocytes % 6.9 8.2 Neutrophils # 6.1 2.4 Neutrophils % 71.6 48.8 Nucleated Red Blood Cells # 0.0 0.0 Nucleated Red Blood Cells % 0.0 0.0 Platelet Count 361 # 320 Potassium Level 4.2 3.9 Red Blood Count 4.24 4.02 L Red Cell Distribution Width 12.5 12.3 Sodium Level 139 142 Total Bilirubin 0.1 L 0.2 Total Protein 8.5 H 7.3 # White Blood Count 8.6 # 4.9 # Urine Bilirubin NEGATIVE Urine Clarity CLEAR Urine Color LT. YELLOW Urine Glucose NEGATIVE Urine Hemoglobin NEGATIVE Urine Ketones NEGATIVE Urine Leukocyte Esterase NEGATIVE Urine Nitrite NEGATIVE Urine Specific [place] <=1.005 L Urine Total Protein NEGATIVE Urine Urobilinogen 0.2 E.U./dL Urine pH 5.5 Amylase Level 78 Magnesium Level 1.8 Thyroid Stimulating Hormone (TSH) < 0.015 L Medications Medications Current Medications Ondansetron HCl (Zofran Inj) 4 mg Q6H PRN IV NAUSEA AND/OR VOMITING Last administered on 09/07/16 16:30; Admin Dose 4 MG; Start 09/07/16 at 04:30 Docusate Sodium 200 mg 200 mg BID PO ; Start 09/07/16 at 09:00 Dextrose/Sodium Chloride (D5-1/2ns) 1,000 ml @ 125 mls/hr Q8H IV Last administered on 09/07/16 13:23; Admin Dose 125 MLS/HR; Start 09/07/16 at 04:30 Famotidine (Pepcid) 20 mg BID PO Last administered on 09/07/16 08:38; Admin Dose 20 MG; Start 09/07/16 at 09:00 Ferrous Sulfate (Ferrous Sulfate (Ec)) 325 mg DAILY PO ; Start 09/07/16 at 09:00 Levothyroxine Sodium (Synthroid) 300 mcg DAILY@06 PO ; Start 09/07/16 at 06:00 Morphine Sulfate (morphine) 4 mg Q3H PRN IV SEVERE PAIN LEVEL 7-10; Start 09/07 at 17:00 JAROCHO MATHEW MD Sep 07, 2016 19:52
[2016-09-07 19:54] VITALS: BP 141/79; RESP 21
[2016-09-07] MEDS: morphine 4 MG/ML VIAL IV PRN ×2 (19:57→22:02)
[2016-09-07] MEDS ORDERED: INDOMETHACIN 50 MG SUPP PR ONE (20:00)
[2016-09-07] MEDS: LEVOFLOXACIN 500MG/D5W (PMX) 100 ML IVPB SCH (20:21)
[2016-09-07] MEDS ORDERED: METOCLOPRAMIDE 10 MG INJ IV PRN (20:30)
[2016-09-07] MEDS ORDERED: SOD CHLORIDE 0.9% IV PRN (21:00)
[2016-09-07] MEDS ORDERED: ONDANSETRON INJ 8 MG in SOD CHLORIDE 0.9% 50 ML IV PRN (21:00)
[2016-09-07] MEDS ORDERED: ONDANSETRON IV PRN (21:00)
[2016-09-07] MEDS: metroNIDAZOLE 500 MG/NS (PMX) 100 ML IVPB SCH (21:24)
[2016-09-08] VITALS (12 sets, daily range): BP systolic 118–137; BP diastolic 61–91; PULSE 84–93; RESP 18–23
[2016-09-08] MEDS: DEXTROSE 5%-0.45% NACL 1,000 ML IV SCH ×3 (01:05→20:30)
[2016-09-08 05:04] LABS: BASOPHILS % 0.3 % (0.0-2.0); EOSINOPHILS % 0.4 % (0.0-7.0); HEMATOCRIT 39.2 % (37.0-47.0); HEMOGLOBIN 13.3 g/dl (12.0-16.0); LYMPHOCYTES # 1.7 10^3/ul (0.8-2.9); LYMPHOCYTES % 19.2 % (15.0-51.0); MEAN CORPUSCULAR HEMOGLOBIN 30.5 pg (29.0-33.0); MEAN CORPUSCULAR VOLUME 89.7 fl (82.0-101.0); MEAN PLATELET VOLUME 9.2 fl (7.4-10.4); MONOCYTE # 0.6 10^3/ul (0.3-0.9); MONOCYTES % 6.6 % (0.0-11.0); NEUTROPHIL # 6.3 10^3/ul (1.6-7.5); NEUTROPHILS % 73.5 % (39.0-77.0); PLATELET COUNT 379 10^3/UL (140-440); RED BLOOD COUNT 4.36 10^6/ul (4.20-5.40); RED CELL DISTRIBUTION WIDTH 12.7 % (11.5-14.5); UNCORRECTED WBC 8.6 10^3/ul (4.8-10.8); WHITE BLOOD COUNT 8.6 10^3/ul (4.8-10.8)
[2016-09-08 05:07] LABS: CONDITION 1
[2016-09-08 05:11] LABS: INR 0.97; PROTIME 12.9 Sec (12.2-14.2)
[2016-09-08 05:12] LABS: PARTIAL THROMBOPLASTIN TIME 31.6 Sec (25.0-35.0)
[2016-09-08] MEDS: LEVOTHYROXINE 100 MCG TAB PO SCH (05:38)
[2016-09-08 05:39] LABS: ALBUMIN 4.1 g/dl (3.3-4.9)
[2016-09-08] MEDS: metroNIDAZOLE 500 MG/NS (PMX) 100 ML IVPB SCH ×3 (05:39→22:00)
[2016-09-08 05:42] LABS: BILIRUBIN,INDIRECT 0.2 mg/dl (0-1.1); BILIRUBIN,TOTAL 0.2 mg/dl (0.2-1.3); CREATININE 0.51 mg/dl (0.44-1.00); TOTAL PROTEIN 8.2 g/dl (6.1-8.1)
[2016-09-08 05:43] LABS: CALCIUM 9.7 mg/dl (8.4-10.2)
[2016-09-08] MEDS ORDERED: CEFAZOLIN 1 GM INJ ONE (07:00)
[2016-09-08] MEDS: DOCUSATE SODIUM 100 MG CAP PO SCH ×2 (08:33→20:06)
[2016-09-08] MEDS: FERROUS SULFATE (EC) 325 MG TAB PO SCH (08:34)
[2016-09-08] MEDS: FAMOTIDINE 20 MG TAB PO SCH ×2 (08:34→20:06)
--- NOTE | 2016-09-08 14:17 | PN ---
Date/Time of Note Date/Time of Note DATE: 09/08/16 TIME: 14:13 Assessment/Plan VTE Prophylaxis VTE Prophylaxis Intervention: ambulation Lines/Catheters IV Catheter Type (from Nrs): Peripheral IV Assessment/Plan Chief Complaint/Hosp Course 1. Persistent abd / mid back pain likely 2/2 #2 2. Acute pancreatitis and elevated transaminases concerning for Possibly retained gallstone pancreatitis and/or Choledocholithiasis -plan is for ERCP today as MRCP shows possible CBD stone 3. Hypothyroidism -cont Synthroid PPx- Ambulate Problems: Subjective 24 Hr Interval Summary Gastrointestinal: pain Exam/Review of Systems Vital Signs Vitals Vital Signs Date Time Temp Pulse Resp B/P Pulse Ox O2 Delivery O2 Flow Rate FiO2 09/08/16 08:00 97.8 75 18 137/91 99 09/07/16 04:08 Room Air Intake and Output 09/07/16 09/07/16 09/08/16 15:00 23:00 07:00 Intake Total 1000 ml 840 ml 1000 ml Output Total 200 ml 200 ml Balance 1000 ml 640 ml 800 ml Exam Constitutional: alert, oriented Respiratory: clear to auscultation Cardiovascular: regular rate and rhythm Gastrointestinal: soft, tender, No distended Musculoskeletal: nl extremities to inspection Results Result Diagram: 09/08/16 0430 09/08/16 0430 Results 24 hrs Laboratory Tests Test 09/08/16 04:30 Activated Partial Thromboplast Time 31.6 Alanine Aminotransferase (ALT/SGPT) 840 H Albumin 4.1 Albumin/Globulin Ratio 1.00 Alkaline Phosphatase 539 H Amylase Level 1674 #H Anion Gap 19 H Aspartate Amino Transf (AST/SGOT) 706 H Basophils # 0.0 Basophils % 0.3 Blood Urea Nitrogen 6 L Calcium Level 9.7 Carbon Dioxide Level 29 Chloride Level 100 Creatinine 0.51 Direct Bilirubin 0.00 Eosinophils # 0.0 Eosinophils % 0.4 Globulin 4.10 H Glucose Level 143 Hematocrit 39.2 Hemoglobin 13.3 INR International Normalized Ratio 0.97 Indirect Bilirubin 0.2 Lipase 45291 H Lymphocytes # 1.7 Lymphocytes % 19.2 Mean Corpuscular Hemoglobin 30.5 Mean Corpuscular Hemoglobin Concent 34.0 Mean Corpuscular Volume 89.7 Mean Platelet Volume 9.2 Monocytes # 0.6 Monocytes % 6.6 Neutrophils # 6.3 Neutrophils % 73.5 Nucleated Red Blood Cells # 0.0 Nucleated Red Blood Cells % 0.0 Platelet Count 379 Potassium Level 4.0 Prothrombin Time 12.9 Prothrombin Time Ratio 1.0 Red Blood Count 4.36 Red Cell Distribution Width 12.7 Sodium Level 144 Total Bilirubin 0.2 Total Protein 8.2 H White Blood Count 8.6 # Medications Medications Current Medications Docusate Sodium 200 mg 200 mg BID PO Last administered on 09/07/16 21:24; Admin Dose 200 MG; Start 09/07/16 at 09:00 Dextrose/Sodium Chloride (D5-1/2ns) 1,000 ml @ 125 mls/hr Q8H IV Last administered on 09/08/16 10:37; Admin Dose 125 MLS/HR; Start 09/07/16 at 04:30 Famotidine (Pepcid) 20 mg BID PO Last administered on 09/07/16 21:25; Admin Dose 20 MG; Start 09/07/16 at 09:00 Ferrous Sulfate (Ferrous Sulfate (Ec)) 325 mg DAILY PO ; Start 09/07/16 at 09:00 Levothyroxine Sodium (Synthroid) 300 mcg DAILY@06 PO ; Start 09/07/16 at 06:00 Morphine Sulfate 4 mg 4 mg Q3H PRN IV SEVERE PAIN LEVEL 7-10 Last administered on 09/07/16 22:02; Admin Dose 4 MG; Start 09/07/16 at 17:00 Levofloxacin/ Dextrose 100 ml @ 100 mls/hr Q24H IVPB Last administered on 09/07 20:21; Admin Dose 100 MLS/HR; Start 09/07/16 at 20:00 Metronidazole (Flagyl 500 Mg (Pmx)) 100 ml @ 100 mls/hr Q8 IVPB Last administered on 09/08/16 05:39; Admin Dose 100 MLS/HR; Start 09/07/16 at 22:00 Metoclopramide HCl 10 mg 10 mg Q6H PRN IV NAUSEA Last administered on 21:50; Admin Dose 10 MG; Start 09/07/16 at 20:30 Ondansetron HCl/ Sodium Chloride (Zofran Inj/NS) 54 ml @ 216 mls/hr Q6H PRN IV NAUSEA AND/OR VOMITING; Start 09/07/16 at 21:00 GINNY LUNA Sep 08, 2016 14:17
[2016-09-08] MEDS ORDERED: INDOMETHACIN 50 MG SUPP PR ONE (15:24)
[2016-09-08] MEDS ORDERED: IOHEXOL 300MG/ML 30 ML BTL ONE (15:24)
[2016-09-08] MEDS ORDERED: MIDAZOLAM 1 MG/ML 2 ML INJ ONE (15:31)
[2016-09-08] MEDS ORDERED: PROPOFOL 20 ML ONE (15:31)
[2016-09-08] MEDS ORDERED: NEOSTIGMINE 3 MG/3 ML SYRINGE ONE (15:31)
[2016-09-08] MEDS ORDERED: ONDANSETRON 4 MG INJ ONE (15:31)
[2016-09-08] MEDS ORDERED: SUCCINYLCHOLINE CHLORIDE 100 MG/5 ML SYG IV ONE (15:31)
[2016-09-08] MEDS ORDERED: LIDOCAINE 100 MG SYRINGE ONE (15:31)
[2016-09-08] MEDS ORDERED: GLYCOPYRROLATE 0.4 MG INJ ONE (15:31)
[2016-09-08] MEDS ORDERED: DEXAMETHASONE 4 MG/ML 1 ML INJ ONE (15:31)
[2016-09-08] MEDS ORDERED: FENTAnyl 50 MCG/ML VIAL ONE (15:34)
--- NOTE | 2016-09-08 15:34 | HPN ---
Date/Time of Note Date/Time of Note DATE: 09/08/16 TIME: 15:34 Interval H&P Admission Note Pt. seen H&P reviewed: No system changes JAROCHO MATHEW MD Sep 08, 2016 15:34
[2016-09-08] MEDS ORDERED: METOCLOPRAMIDE 10 MG INJ ONE (15:58)
--- NOTE | 2016-09-08 17:56 | GILP ---
DATE OF PROCEDURE: 09/08/2016 DATE: 09/08/2016 NAME OF PROCEDURE: Endoscopic retrograde cholangiopancreatography with sphincterotomy and stone rem oval plus stent placement. SURGEON: Lena Bustillo MD. HISTORY AND INDICATIONS: The patient post recent laparoscopic cholecystectomy with persistent pain, questionable stone in the common bile duct by MRCP and some fluid collections that raise questions regarding possibility of leak. PREMEDICATION: General anesthesia by anesthesiologist. TECHNIQUE: After informed consent, with the patient/relatives understanding the procedure, its indic ations, potential risks, and complications, including but not limited to: allergic reaction, bleedin g, perforation or infection, and after all pertinent questions were answered to the patient's satisf action, the patient/relatives signed witnessed informed consent. Following this, premedication was administered slowly IV push under careful cardiovascular and respi ratory monitoring with pulse oximetry, automatic blood pressure and electric meter tester shop. Once the sedative effect was achieved, the patient was place in the prone position in the radiology special procedures suite; the side viewing panendoscope was introduced and advanced under visual con trol. Careful examination of the upper gastrointestinal tract, both on insertion as well as withdrawal of the instrument disclosed the following findings: ESOPHAGUS: The mucosa of the entire esophagus appears within normal limits. There is no evidence of esophagitis, varices, neoplasm, or stricture. No hiatal hernia identified. STOMACH: Upon entrance to the stomach, air was insufflated, the gastric tyalor distended normally. The mucosa of the fundus, body, and antrum of the stomach was carefully examined both head-on and on retroflexion, and shows no abnormalities. There is no evidence of gastritis, ulcers, or neoplasm. PYLORUS: The pylorus appears patent and within normal limits, with no evidence of gastric outlet ob struction. DUODENUM: The duodenal mucosa was carefully examined in the duodenal bulb as well as the second por tion of the duodenum and appears unremarkable with no evidence of duodenitis, ulcer, or neoplasm. AMPULLA OF VATER: Ampulla was identified and cannulated without difficulty, opacifying the biliary tree, the biliary tree is slightly dilated at 12 mL. Cystic duct is patent and there is a clear branden k at the end of the cystic duct. CANNULATION: At this point cannulation was accomplished with the following fluoroscopic findings: CHOLANGIOGRAM: The cholangiogram also showed a 6 mm stone in the distal common bile duct. A standa rd sphincterotomy was performed without difficulty. Following this, balloon catheter was utilized t o extract the stone and, once this was accomplished, a 10 Turkmen 7 cm stent was placed without diffi culty reaching the common hepatic duct proximal to the cystic duct takeoff. Adequate drainage was n oted. IMPRESSION: 1. Cystic duct leak. 2. A 6 mm common bile duct stone. 3. Post-sphincterotomy. 4. Post-stone removal. 5. Post-stent placement 10-Turkmen stent 7 cm. PLAN: Observation. Advance diet as tolerated. Remove stent in 8 weeks. Dictated By: LENA BUSTILLO MS/THERESA Conf#: [id number] DID#: [id number] CC: TYRELL TRAMMLEL MD; LENA BUSTILLO;*End*
[2016-09-08] MEDS: LEVOFLOXACIN 500MG/D5W (PMX) 100 ML IVPB SCH (20:06)
[2016-09-08] MEDS ORDERED: VITAMIN A & D 5 GM OINT PACKET TOP ONE (21:44)
[2016-09-09] MEDS: DEXTROSE 5%-0.45% NACL 1,000 ML IV SCH ×2 (04:30→12:30)
[2016-09-09] MEDS: LEVOTHYROXINE 100 MCG TAB PO SCH (04:35)
[2016-09-09 05:46] LABS: BASOPHILS % 0.2 % (0.0-2.0); CONDITION 1; HEMATOCRIT 36.8 % (37.0-47.0); HEMOGLOBIN 12.4 g/dl (12.0-16.0); LYMPHOCYTES # 1.6 10^3/ul (0.8-2.9); LYMPHOCYTES % 16.1 % (15.0-51.0); MEAN CORPUSCULAR HEMOGLOBIN 30.2 pg (29.0-33.0); MEAN CORPUSCULAR HGB CONC 33.7 g/dl (32.0-37.0); MEAN CORPUSCULAR VOLUME 89.6 fl (82.0-101.0); MEAN PLATELET VOLUME 9.4 fl (7.4-10.4); MONOCYTE # 0.5 10^3/ul (0.3-0.9); MONOCYTES % 4.9 % (0.0-11.0); NEUTROPHIL # 7.8 10^3/ul (1.6-7.5); NEUTROPHILS % 78.8 % (39.0-77.0); PLATELET COUNT 390 10^3/UL (140-440); RED CELL DISTRIBUTION WIDTH 12.7 % (11.5-14.5); UNCORRECTED WBC 9.9 10^3/ul (4.8-10.8); WHITE BLOOD COUNT 9.9 10^3/ul (4.8-10.8)
[2016-09-09 05:55] LABS: POTASSIUM 4.3 mmol/L (3.5-5.1)
[2016-09-09 05:57] LABS: CREATININE 0.47 mg/dl (0.44-1.00)
[2016-09-09 05:58] LABS: ALBUMIN/GLOBULIN RATIO 0.93; BILIRUBIN,INDIRECT 0.1 mg/dl (0-1.1); BILIRUBIN,TOTAL 0.1 mg/dl (0.2-1.3); CALCIUM 9.6 mg/dl (8.4-10.2); TOTAL PROTEIN 8.3 g/dl (6.1-8.1)
[2016-09-09] MEDS: metroNIDAZOLE 500 MG/NS (PMX) 100 ML IVPB SCH ×2 (06:56→14:00)
[2016-09-09 07:34] VITALS: BP 114/65; RESP 16
[2016-09-09] MEDS: DOCUSATE SODIUM 100 MG CAP PO SCH (08:40)
[2016-09-09] MEDS: FAMOTIDINE 20 MG TAB PO SCH (08:40)
[2016-09-09] MEDS: FERROUS SULFATE (EC) 325 MG TAB PO SCH (08:43)
--- NOTE | 2016-09-09 09:25 | RADRPT ---
PROCEDURE: Intraoperative imaging for ERCP with fluoroscopy. CLINICAL INDICATION: Right upper quadrant pain. Intraoperative. TECHNIQUE: 4 images of the right upper quadrant of the abdomen were obtained in the operating room with an image intensifier. No radiologist was in attendance. 81.5 seconds of fluoroscopy time was used. COMPARISON: MRI of the abdomen and MRCP dated 09/07/2016. FINDINGS: Images demonstrate the endoscope in position and contrast injected into the common bile duct. The g allbladder is surgically absent with skin rivas and surgical clips noted in this region. There is a bile leak from the cystic duct. The final image demonstrates a stent in the common bile duct in satisfactory position. IMPRESSION: 1. ERCP as described above. RPTAT: QQ .Ilya Villa MD, Date Time Electronically viewed and signed by .Ilya Villa MD, on 09/09/2016 09:25 .R/
--- NOTE | 2016-09-09 11:42 | PDOCDIS ---
Discharge Instructions CONDITION Patient Condition: Good HOME CARE INSTRUCTIONS: Diet Instructions: Regular ACTIVITY: Activity Restrictions: Slowly Increase Activity Bathing Restrictions: Shower FOLLOW UP/APPOINTMENTS Appointments F/U WITH YOUR PCP IN 1-2 WEEKS AND F/U WITH DR MATHEW FOR REMOVAL OF BILIARY STENT IN 8 WEEKS GINNY LUNA Sep 09, 2016 11:42
--- NOTE | 2016-09-09 15:05 | CONS ---
DATE OF ADMISSION: 09/07/2016 DATE OF CONSULTATION: 09/09/2016 HISTORY OF PRESENT ILLNESS: This is a 26-year-old female who underwent laparoscopic cholecystectomy , presenting with nonspecific abdominal pain. She was found upon examination and evaluation to have choledocholithiasis and pancreatitis. She was evaluated and admitted. She underwent an ERCP with sphincterotomy and stent placement in the bile duct. Post-procedure, she progressed [facility] Additionally, [facility]. Post-procedure, she continued to do well and is tolerating diet and she was discharged to home. PAST MEDICAL HISTORY: Hypothyroidism. PAST SURGICAL HISTORY: Laparoscopic cholecystectomy. SOCIAL HISTORY: Denies any smoking and alcohol consumption. PHYSICAL EXAMINATION: VITAL SIGNS: Temperature is 98.6, pulse is 80, respiratory rate is 16, blood pressure is 114/65. CONSTITUTIONAL: Alert and oriented. HEENT: PERRLA moist mucosa. NECK: Supple, midline CHEST: Clear to auscultation. CARDIOVASCULAR: Regular rate. GI focal tenderness. LABORATORY DATA: White cell count 10.9, hemoglobin is 12.4, hematocrit is 36.8, platelet count 390. Chemistry is sodium 142, potassium 4.3, chloride 99, carbon dioxide 29, BUN is 8, creatinine 0.47, glucose 115. T bili is 0.1, alkaline phosphatase is 413, trending down from 539. Lipase is 608, t rending down from 14,069. ASSESSMENT AND PLAN: This is a 26-year-old female status post laparoscopic cholecystectomy with com mon bile duct stone and pancreatitis, both resolving after ERCP with sphincterotomy and bile duct st ents. She is tolerating diet and she is going to be discharged home and follow with me in the offic e. Dictated By: HERNANDEZ HUA/THERESA Conf#: [id number] DID#: [id number]
--- NOTE | 2016-09-09 16:07 | DS ---
DATE OF ADMISSION: 09/07/2016 DATE OF DISCHARGE: 09/09/2016 DISCHARGE DIAGNOSES: Abdominal pain secondary to retained 6 mm common bile duct stone status post sphincterectomy, stone removal and stent placement. The patient also had a cystic duct leak. HOSPITAL COURSE: The patient is a 26-year-old female with a recent history of cholelithiasis with a recent laparoscopic cholecystectomy on 08/31/2016. Of note, the patient was when she was initially diagnosed with cholelithiasis and surgery was done after delivery of her baby. Postoperat ively, patient reported having persistent epigastric pain and hence was admitted. The patient was s een by GI. The patient had an MRCP that showed a mild dilation of the intrahepatic biliary ducts an d common duct extending down the ampulla. She was also seen by Dr. Quintanilla of surgery. The patient was tolerating diet and was cleared from the surgical perspective with plans follow up with Dr. Quintanilla in office. The patient had an ERCP during the hospitalization. The patient was noted to have 6 mm com mon bile duct stone, post-sphincterotomy, post stone, removal post-stent placement. The patient als o had a CSF leak which was deemed stable by surgery. Recommendation by GI was observation and advan ce diet as tolerated. Remove stent in 8 weeks. Patient did tolerate a regular diet and was felt to be stable for discharge. On day of discharge, her LFTs had trended down. Her lipase was also tren ding down. She no longer complained of any abdominal pain. She had no other acute complaints. Phy sical exam, vitals and laboratories are stable, questions were answered. CONDITION ON DISCHARGE: Stable. DISPOSITION: To home. MEDICATIONS: The patient is to continue her usual home medications. No new medications were prescr ibed. FOLLOWUP: The patient to follow up with PCP in 1 to 2 weeks and with GI and with the surgeon, Dr. Devante higgins. Greater than 30 minutes was spent coordinating discharge of patient. Dictated By: GINNY LUNA MD BS/NTS Conf#: [id number] DID#: [id number]
[2016-09-09] MEDS ORDERED: ACETAMINOPHEN 325 MG TAB PO ONE (17:00)
--- NOTE | 2016-09-09 17:11 | CONS ---
Date/Time of Note Date/Time of Note DATE: 09/09/16 TIME: 17:03 Assessment/Plan Assessment/Plan Additional Assessment/Plan Acute pancreatitis and elevated transaminases * Improving * LFTs and lipase trending downward Probable choledocholithiasis * Post laparoscopic cholecystectomy 08/31/2016 * Status post ERCP 09-08-16: The cholangiogram also showed a 6 mm stone in the distal common bile duct. A standard sphincterotomy was performed without difficulty. Following this, balloon catheter was utilized to extract the stone and, once this was accomplished, a 10 South Korean 7 cm stent was placed without difficulty reaching the common hepatic duct proximal to the cystic duct takeoff. Adequate drainage was noted. Hypothyroidism Advance diet as tolerated Further recommendations depend on clinical course Patient seen in collaboration with Dr. Bustillo Consultation Date/Type/Reason Admit Date/Time Sep 07, 2016 at 01:44 Initial Consult Date 09/07/16 Type of Consultation: Gastroenterology Reason for Consultation Abdominal pain 24 HR Interval Summary Free Text/Dictation Tolerating diet Reports diffuse abdominal pain but it is improving Provided 1 dose of Tylenol prior to discharge Reminded patient to have stent removed in 8 weeks Exam/Review of Systems Vital Signs Vitals Vital Signs Date Time Temp Pulse Resp B/P Pulse Ox O2 Delivery O2 Flow Rate FiO2 09/09/16 07:34 98.6 58 16 114/65 98 09/08/16 16:53 Room Air 09/08/16 16:23 2.0 Intake and Output 09/08/16 09/08/16 09/09/16 15:00 23:00 07:00 Intake Total 500 ml 800 ml 400 ml Balance 500 ml 800 ml 400 ml Exam Constitutional: alert, distress (Moderate), oriented, well developed Psych: anxiety Head: atraumatic, normocephalic Eyes: EOMI, PERRL, nl conjunctiva, nl lids, nl sclera ENMT: nl external ears & nose, nl lips & teeth, nl nasal mucosa & septum Neck: non-tender, supple Respiratory: clear to auscultation, normal air movement Cardiovascular: nl pulses, regular rate and rhythm Gastrointestinal: bowel sounds, distended, soft, tender (Moderate to severe tenderness epigastrium and right upper quadrant area), No rebound or guarding Musculoskeletal: nl extremities to inspection Extremities: normal pulses Skin: nl turgor, No rash or lesions Lymph: nl lymph nodes Results Result Diagram: 09/09/167 09/09/16 0427 Results 24 hrs Laboratory Tests Test 09/09/16 04:27 Alanine Aminotransferase (ALT/SGPT) 499 H Albumin 4.0 Albumin/Globulin Ratio 0.93 Alkaline Phosphatase 413 H Anion Gap 18 H Aspartate Amino Transf (AST/SGOT) 167 H Basophils # 0.0 Basophils % 0.2 Blood Urea Nitrogen 8 Calcium Level 9.6 Carbon Dioxide Level 29 Chloride Level 99 Creatinine 0.47 Direct Bilirubin 0.00 Eosinophils # 0.0 Eosinophils % 0.0 Globulin 4.30 H Glucose Level 115 Hematocrit 36.8 L Hemoglobin 12.4 Indirect Bilirubin 0.1 Lipase 608 H Lymphocytes # 1.6 Lymphocytes % 16.1 Mean Corpuscular Hemoglobin 30.2 Mean Corpuscular Hemoglobin Concent 33.7 Mean Corpuscular Volume 89.6 Mean Platelet Volume 9.4 Monocytes # 0.5 Monocytes % 4.9 Neutrophils # 7.8 H Neutrophils % 78.8 H Nucleated Red Blood Cells # 0.0 Nucleated Red Blood Cells % 0.0 Platelet Count 390 Potassium Level 4.3 Red Blood Count 4.10 L Red Cell Distribution Width 12.7 Sodium Level 142 Total Bilirubin 0.1 L Total Protein 8.3 H White Blood Count 9.9 Medications Medications Current Medications Docusate Sodium 200 mg 200 mg BID PO Last administered on 09/09/16 08:40; Admin Dose 200 MG; Start 09/07/16 at 09:00 Dextrose/Sodium Chloride (D5-1/2ns) 1,000 ml @ 125 mls/hr Q8H IV Last administered on 09/08/16 10:37; Admin Dose 125 MLS/HR; Start 09/07/16 at 04:30 Famotidine (Pepcid) 20 mg BID PO Last administered on 09/09/16 08:40; Admin Dose 20 MG; Start 09/07/16 at 09:00 Ferrous Sulfate (Ferrous Sulfate (Ec)) 325 mg DAILY PO Last administered on 08:43; Admin Dose 325 MG; Start 09/07/16 at 09:00 Levothyroxine Sodium (Synthroid) 300 mcg DAILY@06 PO Last administered on 04:35; Admin Dose 150 MCG; Start 09/07/16 at 06:00 Morphine Sulfate 4 mg 4 mg Q3H PRN IV SEVERE PAIN LEVEL 7-10 Last administered on 09/07/16 22:02; Admin Dose 4 MG; Start 09/07/16 at 17:00 Levofloxacin/ Dextrose 100 ml @ 100 mls/hr Q24H IVPB Last administered on 09/08 20:06; Admin Dose 100 MLS/HR; Start 09/07/16 at 20:00 Metronidazole (Flagyl 500 Mg (Pmx)) 100 ml @ 100 mls/hr Q8 IVPB Last administered on 09/09/16 06:56; Admin Dose 100 MLS/HR; Start 09/07/16 at 22:00 Metoclopramide HCl 10 mg 10 mg Q6H PRN IV NAUSEA Last administered on 21:50; Admin Dose 10 MG; Start 09/07/16 at 20:30 Ondansetron HCl/ Sodium Chloride (Zofran Inj/NS) 54 ml @ 216 mls/hr Q6H PRN IV NAUSEA AND/OR VOMITING; Start 09/07/16 at 21:00 EDNA DYSON Sep 09, 2016 17:10
--- NOTE | 2016-09-09 19:21 | CONS ---
[facility] INITIAL INPATIENT CONSULTATION DATE OF CONSULTATION: 09/09/2016 PLACE OF SERVICE: [facility] 4th floor. ASSESSMENT AND PLAN: A very pleasant and relatively healthy 26-year-old young lady with perhaps slight comorbidity of obesity, recently status post laparoscopic cholecystectomy, which appears to be done through transection of the gallbladder near the infundibulum, but intact cystic duct that has unfortunately been complicated by gallstone pancreatitis. This could have certainly been a stone that was present within the common bile duct and by chance has caused pancreatitis. Currently, we believe that the common bile duct has been cleared by Dr. Bustillo's excellent work and the patient does have a stent in place which would protect her. I personally do not believe that the patient has a cystic duct leak. The size of the infundibulum is large enough that the contrast that was seen to leave the cystic duct area could simply be pulling within the infundibulum. This assessment is also supported by the patient's normal white blood cell count and a relatively benign physical exam. Usually with a bile leak at the cystic duct junction, the patient would have significant more symptoms in the abdomen. Regardless, the common bile duct stent that is in place should serve as a protector and the patient does appear to be doing better clinically. At this time, I do not recommend any other intervention other than perhaps discontinuing the patient's skin rivas. The patient should be discharged home when otherwise medically stable and then follow up with Dr. Bustillo in 4 to 6 weeks for stent removal. She should also follow up with Dr. Quintanilla for her postoperative needs and have at least one visit with us in the next 2 to 3 weeks in order to have a hepatobiliary followup as well. I explained all this to the patient in detail and answered all her questions to the best of my ability. The patient appears to understand and agrees with the plans. With above assessment I have recommended the followin. Discharge home when able to tolerate her oral intake. 2. Follow up with Dr. Bustillo in 4 to 6 weeks for stent removal. 3. Follow up with Dr. Quintanilla in 2 to 3 weeks. 4. Follow up with us in 2 to 3 weeks. 5. Call immediately and come back to the hospital if any worsening of symptoms. 6. Possible consideration for completion cholecystectomy if any evidence of retained stones within the infundibulum (none seen at this time). Thank you again for allowing us to participate in the care of this very pleasant young lady and her wonderful family. If there are any questions, please feel free to call me at [phone]. TOTAL VISIT TIME: 45 minutes, of which more than half was spent in face-to- face discussion with the patient as well as coordination of care between multiple physicians and providers. REFERRING PHYSICIAN: Lety Quintanilla MD UPDATED CLINICAL SUMMARY: A very pleasant 26-year-old lady status post laparoscopic cholecystectomy for symptomatic cholelithiasis 08/31/2016 readmitted back to the hospital on 09/07/2016 with gallstone pancreatitis; status post ERCP 09/08/2016 with reported diagnosis of cystic duct leak, 6 mm common bile duct stone that was removed after sphincterotomy and placement of a 10-Yi stent 7 cm. COMORBIDITIES: 1. Weight 166 pounds. 2. Intermittent right hand weakness and numbness; reported abnormal MRI ( further details lacking) no further symptoms at the time of admission to [facility] 08/2016. 3. Symptomatic cholelithiasis, status post laparoscopic cholecystectomy as above, complicated by gallstone pancreatitis postoperatively. 4. Hypothyroidism, chronic. 5. Status post childbirth 3 months ago. DATE OF ADMISSION: 09/07/2016 HISTORY OF PRESENT ILLNESS: The patient is a very pleasant 26-year-old young lady with above-mentioned comorbidities who underwent laparoscopic cholecystectomy in 06/2016, which was followed by readmission a short while later for what appears to be gallstone pancreatitis. The patient underwent ERCP and a stone was removed and a stent was placed. I was kindly asked to consult from a hepatobiliary standpoint regarding further management. During my visit, the patient did not have any major complaints and reported feeling better than when she was admitted. No major complaints at this time, but she was understandably anxious about her diagnoses and future prospects. She reported no nausea or vomiting and was just started on solid food for her diet. ALLERGIES: NO KNOWN DRUG ALLERGIES. MEDICATIONS: None chronically. SOCIAL HISTORY: The patient has a 3-month-old daughter. She does not report any smoking, drinking, or intravenous drug use. FAMILY HISTORY: No major medical, surgical or oncologic issues reported by the patient. REVIEW OF SYSTEMS: Other than the above-mentioned, there are no other pertinent positives or pertinent negatives in a complete 14-point review of systems. PHYSICAL EXAMINATION: GENERAL: The patient appears to be a very pleasant [place] young lady lying in bed comfortably and in no acute distress. Her BMI is inaccurately recorded or reported in the chart. Her weight is roughly 165 pounds. VITAL SIGNS: Temperature 98.6, blood pressure 114/65, pulse 58, respiratory rate 16, pulse oximetry 98% on room air. ABDOMEN: Her abdomen is soft, nondistended, and mildly tender to palpation, mainly around the incisions. The incisions appear to be well healed and there are rivas in place holding the skin together. No evidence of erythema, edema , discharge or hernia. No organomegaly, caput medusae or engorged subcutaneous veins. No evidence of ascites. No peritoneal signs or guarding. LABORATORY DATA: White blood cell count 9.9, hemoglobin 12.4, platelets 390. Electrolytes appear to be normal. CO2 29, creatinine 0.47. Albumin after hydration 4.0. Amylase was normal on 09/07/2016. On 09/08/2016 it was 1674. Lipase was elevated on 09/06/2016 at 558 peaking at 14,069 on 09/08/2016 and then 608 on 09/09/2016. INR 0.97. Urinalysis was negative. IMAGING: The patient had a CT scan of the abdomen and pelvis on 09/06/2016 that showed evidence for cholecystectomy and minimal fluid in the gallbladder fossa, decreased in the interval from 09/01/2016 to 09/07/2016. No other major pertinent findings on the CT. MRCP 09/07/2016 showed the above-mentioned surgical changes after cholecystectomy with trace fluid in the gallbladder fossa. Mild dilatation of intrahepatic biliary ducts and of the common bile duct was noted extending down to the ampulla. There was a rounded area of low signal intensity at the level of the ampulla within the common bile duct and this could represent a distal stone or focal fold of the duodenum. Mild fat stranding was seen in the pancreatic head which could indicate mild pancreatitis. Note that my personal review of the MRI also indicates transection of the gallbladder at the upper part of the infundibulum with the cystic duct intact. ERCP images are available as well for review. Dictated By: NAHOMI MORALEZ/THERESA Conf#: [id number] DID#: [id number] [facility]
== END 2016-09-09 18:40 | disposition home or self-care (01) | DRG 395 ==
LOC: E/R 23:13 → MS1 09-07 01:44
PROVIDERS: ADMIT Family Medicine; ATTEND Family Medicine
PROC: 0F798DZ Dilation of Common Bile Duct with Intraluminal Device, Via Natural or Artificial Opening Endoscopic (ICD-10-PCS; 2016-09-08)
PROC: 0FC98ZZ Extirpation of Matter from Common Bile Duct, Via Natural or Artificial Opening Endoscopic (ICD-10-PCS; principal; 2016-09-08 16:30)
DX: K91.86 Retained cholelithiasis following cholecystectomy (principal); I10 Essential (primary) hypertension; K91.89 Other postprocedural complications and disorders of digestive system; Y83.6 Removal of other organ (partial) (total) as the cause of abnormal reaction of the patient, or of later complication, without mention of misadventure at the time of the procedure
CPT/HCPCS: 36415; 74176; 74181; 74330; 80053; 81003; 82150; 83690; 83735; 84443; 85025; 85610; 85730; 87081; 96374; 96375; C2617; J0330; J0690; J1100; J1956; J2001; J2250; J2270; J2405; J2710; J2765; J3010; J7030; J7042; Q9967

== ENCOUNTER 2016-10-14 10:48 | Outpatient (CLI) | payer OTHER ==
[~2016-10-14] VITALS: Ht 152.4 cm; Wt 78.2 kg
[2016-10-14 10:43] VITALS: BP 123/83; PULSE 84; RESP 16; Ht 152.4 cm; Wt 78.2 kg
[~2016-10-14 10:48] MED LIST changes: +RANI150T5 PO
--- NOTE | 2016-10-14 12:02 | PN ---
Date/Time of Note Date/Time of Note DATE: 10/14/16 TIME: 11:33 Assessment/Plan Assessment/Plan Assessment/Plan [facility] Progress Note Date of Service: 10/14/16 Today's Impression & Plan: Overall doing and stable. Certainly no cystic duct leak and biliary system is intact. Symptoms of discomfort and feeling hungry likely not directly linked to her recent surgery and stenting, but may benefit from endoscopic evaluation. Discussed her case with Dr. Bustillo and we both agree that she can benefit from balloon occlusion cholangiogram at time of removal of CBD stent removal. If stones are noted in the retained portion of infundibulum, my recommendation would be for patient to undergo completion cholecystectomy. Discussed at length with patient who appears to understand and agrees with plans as outlined below. 1. ERCP with balloon occlusion cholangiography at time of stent removal to evaluate for retained stones in the gallbladder remnant 2. Possible completion cholecystectomy if stones detected in remnant 3. F/u with us after above ERCP to review results Thank you again for your great care of this very pleasant patient and wonderful family. If there are any questions, please feel free to call me at [phone]. TOTAL VISIT TIME: 20 minutes of which more than half was spent in [id number] discussion with the patient, possibly including family, as well as coordination of care between multiple physicians and providers. Disclaimer: Inadvertent spelling or grammatical errors are likely due to EHR/ dictation software use and do not reflect on the overall quality of patient care. Updated Clinical Summary: A very pleasant 26-year-old lady status post laparoscopic cholecystectomy for symptomatic cholelithiasis 08/31/2016 readmitted back to the hospital on 2016 with gallstone pancreatitis; status post ERCP 09/08/2016 with reported diagnosis of cystic duct leak, 6 mm common bile duct stone that was removed after sphincterotomy and placement of a 10-Japanese stent 7 cm. COMORBIDITIES: 1. Weight 166 pounds. 2. Intermittent right hand weakness and numbness; reported abnormal MRI ( further details lacking) no further symptoms at the time of admission to [facility] 08/2016. 3. Symptomatic cholelithiasis, status post laparoscopic cholecystectomy as above, complicated by gallstone pancreatitis postoperatively. 4. Hypothyroidism, chronic. 5. Status post childbirth 3 months ago. Subjective: No major events or complaints since discharge; non-specific abdominal discomfort described with mid-upper epigastric region; main complaint is hunger 2 hours after eating; no n/v/d; no sob or cp; + flatus; + BM and normal; + activity Objective: Vitals: See below Exam: GENERAL: On exam, the patient was sitting in a chair and appeared to be comfortable and in no acute distress. ABDOMEN: Soft, nontender and nondistended. Incisions are clean, dry and intact without any evidence of erythema, edema, discharge, or hernia. There are no peritoneal signs or guarding. SKIN: Skin appears to be pink and feels warm to touch. NEUROLOGIC: Patient is awake, alert, and follows commands appropriately. Exam/Review of Systems Vital Signs Vitals Vital Signs Date Time Temp Pulse Resp B/P Pulse Ox O2 Delivery O2 Flow Rate FiO2 10/14/16 10:43 98.7 84 16 123/83 98 Room Air NAHOMI LAMBERT M.D. Oct 14, 2016 12:02
== END 2016-10-14 17:00 | disposition home or self-care (01) ==
LOC: HPC 10:48
PROVIDERS: ATTEND Transplant Surgery
DX: K85.90 Acute pancreatitis without necrosis or infection, unspecified (principal); K80.20 Calculus of gallbladder without cholecystitis without obstruction; E03.9 Hypothyroidism, unspecified
CPT/HCPCS: G0463

== ENCOUNTER 2016-12-02 12:46 | Day surgery (SDC) | payer OTHER ==
[2016-12-02] VITALS (18 sets, daily range): BP systolic 115–146; BP diastolic 63–87; PULSE 76–98; RESP 18–21; Ht 152.4 cm; Wt 77.5 kg
[~2016-12-02] VITALS: Ht 152.4 cm; Wt 77.5 kg
[~2016-12-02 12:46] MED LIST changes: +METOCLOPRAMIDE 10 MG INJ ONE; +ONDANSETRON 4 MG INJ ONE
[2016-12-02] MEDS ORDERED: IOHEXOL 300MG/ML 30 ML BTL ONE (16:52)
[2016-12-02] MEDS ORDERED: INDOMETHACIN 50 MG SUPP PR ONE (16:53)
[2016-12-02] MEDS ORDERED: LIDOCAINE 2% (SDV) 5 ML INJ ONE (17:46)
[2016-12-02] MEDS ORDERED: MEPERIDINE 100 MG INJ ONE (17:46)
[2016-12-02] MEDS ORDERED: GLYCOPYRROLATE 0.4 MG INJ ONE ×2 (17:46→18:12)
[2016-12-02] MEDS ORDERED: NEOSTIGMINE 3 MG/3 ML SYRINGE ONE ×2 (17:46→18:12)
[2016-12-02] MEDS ORDERED: ROCURONIUM 50 MG INJ ONE (17:46)
[2016-12-02] MEDS ORDERED: PROPOFOL 20 ML ONE (17:46)
[2016-12-02] MEDS ORDERED: SUCCINYLCHOLINE CHLORIDE 100 MG/5 ML SYG IV ONE (17:46)
[2016-12-02] MEDS ORDERED: METOCLOPRAMIDE 10 MG INJ IV PRN (18:00)
[2016-12-02] MEDS ORDERED: MEPERIDINE 25 MG INJ IV PRN (18:00)
[2016-12-02] MEDS ORDERED: MIDAZOLAM 1 MG/ML 2 ML INJ IV PRN (18:00)
[2016-12-02] MEDS ORDERED: FENTAnyl 50 MCG/ML VIAL IV PRN (18:00)
[2016-12-02] MEDS ORDERED: DIPHENHYDRAMINE 50 MG INJ IV PRN (18:00)
[2016-12-02] MEDS ORDERED: ONDANSETRON 4 MG INJ IV PRN (18:00)
--- NOTE | 2016-12-02 18:37 | GILP ---
DATE OF PROCEDURE: 12/02/2016 DATE: 12/02/2016 NAME OF PROCEDURE: Endoscopic retrograde cholangiopancreatography with stent removal. SURGEON: Lena Bustillo MD. BRIEF HISTORY AND INDICATIONS: The patient with history of post laparoscopic cholecystectomy cystic duct leak and choledocholithiasis with stent placement. The patient is here for removal of stent. She does complain of some reflux symptoms, partially impr bela by ranitidine. INSTRUMENT USED: Olympus side viewing panendoscope. TECHNIQUE: After informed consent, with the patient/relatives understanding the procedure, its indic ations, potential risks, and complications, including but not limited to: allergic reaction, bleedin g, perforation or infection, and after all pertinent questions were answered to the patient's satisf action, the patient/relatives signed witnessed informed consent. Following this, premedication was administered slowly IV push under careful cardiovascular and respi ratory monitoring with pulse oximetry, automatic blood pressure and manager monitoring. Once the sedative effect was achieved the patient was place in the prone position in the radiology s pecial procedures suite; the side viewing panendoscope was introduced and advanced under visual cont rol. Careful examination of the upper gastrointestinal tract, both on insertion as well as withdrawal of the instrument disclosed the following findings: ESOPHAGUS: There is erythema and edema of the mucosa of the distal esophagus, which is mild and sophie margarita under treatment. STOMACH: Upon entrance to the stomach air was insufflated, the gastric taylor distended normally. T he mucosa of the fundus, body, and antrum of the stomach was carefully examined both head-on and on retroflexion, and shows no abnormalities. There is no evidence of gastritis, ulcers, or neoplasm. PYLORUS: The pylorus appears patent and within normal limits, with no evidence of gastric outlet ob struction. DUODENUM: The duodenal mucosa was carefully examined in the duodenal bulb as well as the second por tion of the duodenum and appears unremarkable with no evidence of duodenitis, ulcer, or neoplasm. AMPULLA OF VATER: The second portion of the duodenum was reached and the ampulla was identified. A plastic stent is noticed exiting the ampulla. It was secured with a polypectomy snare and retrieve d without difficulty. Following this, a balloon cholangiogram was obtained, which showed no evidenc e of residual or retained stones. No other abnormalities are present. Clearly there is no leakage at this point. The instrument was withdrawn. The patient tolerated the procedure well. IMPRESSION: 1. Status post stent removal. 2. Normal cholangiogram, post-cholecystectomy. 3. Distal esophagitis. PLAN: The patient will be prescribed omeprazole 40 mg daily and further recommendation will depend on her clinical course. Dictated By: LENA BUSTILLO MS/THERESA Conf#: [id number] DID#: [id number] CC: LENA BUSTILLO;*EndCC*
--- NOTE | 2016-12-02 19:34 | RADRPT ---
PROCEDURE: Intraoperative imaging for ERCP with fluoroscopy. CLINICAL INDICATION: Right upper quadrant pain. Intraoperative. TECHNIQUE: 2 images of the right upper quadrant of the abdomen were obtained in the operating room with an image intensifier. No radiologist was in attendance. 50.9 seconds of fluoroscopy time was used. COMPARISON: 09/08/2016. FINDINGS: Images demonstrate the endoscope in position and contrast injected into the common bile duct. Surgi martha clips are present from previous cholecystectomy. Filling defects are present in the common bile duct due to gas bubbles or stones. The pancreatic duct was not injected. IMPRESSION: 1. ERCP as described above. RPTAT: QQ .Ilya Villa MD, MD Date Time Electronically viewed and signed by .Ilya Villa MD, on 12/02/2016 19:34 .R/
== END 2016-12-03 18:18 | disposition home or self-care (01) ==
LOC: SDS 12:46
PROVIDERS: ATTEND Internal Medicine Gastroenterology
DX: Z46.89 Encounter for fitting and adjustment of other specified devices (principal); K20.8 Other esophagitis; E03.9 Hypothyroidism, unspecified; E66.9 Obesity, unspecified; Z68.32 Body mass index [BMI] 32.0-32.9, adult
CPT/HCPCS: 43275; 74330; 84703; J0330; J2175; J2405; J2765; J3010; Q9967; Z7512; Z7610; J2710

== ENCOUNTER 2017-04-29 16:30 | Emergency (ER) | payer OTHER ==
[~2017-04-29] VITALS: Ht 152.4 cm; Wt 77.0 kg
[~2017-04-29 16:30] MED LIST changes: -FER325 PO; -FOLI-49 PO; -METOCLOPRAMIDE 10 MG INJ ONE; -NAPR-260 PO; -ONDANSETRON 4 MG INJ ONE; -PRENAT PO
[2017-04-29 16:40] VITALS: Ht 152.4 cm; Wt 77.0 kg
--- NOTE | 2017-04-29 18:49 | RADRPT ---
PROCEDURE: US Pelvis. CLINICAL INDICATION: Pelvic pain, vaginal bleeding TECHNIQUE: Multiple sonographic images of the pelvis were obtained utilizing a transabdominal and endovaginal technique. The images were reviewed on a PACS workstation. COMPARISON: None. FINDINGS: The uterus is visualized and measures 6.5 x 6.8 x 9.2 cm. The endometrial echo complex is normal and measures 0.69 cm . The right ovary measures 1.4 x 4.4 x 3.3 cm The left ovary measures 2.2 x 2.8 x 3.9 cm. There is normal vascular flow to both ovaries. No adnexal masses or free fluid is identified. IMPRESSION: No definite abnormalities are identified. RPTAT:AAJJ Physician Russell Date Time Electronically viewed and signed by Physician Russell on 04/29/2017 18:49 /
[2017-04-29 18:56] LABS: BASOPHILS % 0.4 % (0.0-2.0); EOSINOPHILS # 0.2 10^3/ul (0.0-0.5); EOSINOPHILS % 1.6 % (0.0-7.0); HEMATOCRIT 32.7 % (37.0-47.0); HEMOGLOBIN 10.8 g/dl (12.0-16.0); LYMPHOCYTES # 4.2 10^3/ul (0.8-2.9); LYMPHOCYTES % 40.1 % (15.0-51.0); MEAN CORPUSCULAR HEMOGLOBIN 30.3 pg (29.0-33.0); MEAN CORPUSCULAR VOLUME 91.6 fl (82.0-101.0); MEAN PLATELET VOLUME 11.4 fl (7.4-10.4); MONOCYTE # 0.8 10^3/ul (0.3-0.9); MONOCYTES % 7.5 % (0.0-11.0); NEUTROPHIL # 5.3 10^3/ul (1.6-7.5); NEUTROPHILS % 49.9 % (39.0-77.0); PLATELET COUNT 339 10^3/UL (140-415); RED BLOOD COUNT 3.57 10^6/ul (4.20-5.40); WHITE BLOOD COUNT 10.5 10^3/ul (4.8-10.8)
[2017-04-29] MEDS ORDERED: DOCU-144 PO (19:14)
[2017-04-29 19:20] LABS: ADD UMIC YES; UR ASCORBIC ACID 20 mg/dL (NEGATIVE); UR BACTERIA FEW /HPF (NONE SEEN); UR BILIRUBIN (Dip) NEGATIVE (NEGATIVE); UR BLOOD (Dip) 3+ mg/dL (NEGATIVE); UR CLARITY CLEAR (CLEAR); UR COLOR YELLOW (YELLOW); UR GLUCOSE (Dip) NEGATIVE (NEGATIVE); UR KETONES (Dip) NEGATIVE (NEGATIVE); UR LEUKOCYTE ESTERASE (Dip) NEGATIVE Leu/ul (NEGATIVE); UR NITRITE (Dip) NEGATIVE (NEGATIVE); UR RBC > 182 /HPF (0-5); UR TOTAL PROTEIN (Dip) NEGATIVE (NEGATIVE); UR UROBILINOGEN (Dip) NEGATIVE (NEGATIVE)
[2017-04-29 19:35] VITALS: BP 118/79; PULSE 95; RESP 14; TEMP 98.6
--- NOTE | 2017-04-29 20:48 | ERD ---
ER Documentation Chief Complaint Date/Time DATE: 04/29/17 TIME: 20:47 Chief Complaint vaginal bleeding x 1 month HPI 6-year-old female presents to the emergency department complaining of vaginal bleeding for the past month, going around 6 pads per day. Patient states that she has a history of irregular menstrual periods and vaginal bleeding. She states that she has followed up with her INTERMEDIATE MANAGER and has put her on a low dose hormones however she states that has not helped her yet. Patient denies any fevers, dysuria. He was to having dizziness. She states that she takes ferrous sulfate once a day ROS All systems reviewed and are negative except as per history of present illness. Medications Home Meds Active Scripts Docusate Sodium* (Colace*) 100 Mg Capsule, 100 MG PO BID, #30 CAP Prov:JEEVAN NAVA PA-C 04/29/17 Reported Medications Ranitidine Hcl* (Ranitidine Hcl*) 150 Mg Tablet, 150 MG PO Q12 for GASTROINTESTINAL UPSET, #60 TAB 09/06/16 Levothyroxine Sodium (Levothyroxine Sodium) 300 Mcg Tablet, 150 MCG PO BEFORE BREAKFAST, #30 TAB 05/22/16 Allergies Allergies: Coded Allergies: No Known Allergies (Verified Allergy, Unknown, 12/02/16) PMhx/Soc History of Surgery: Yes (CHOLECYSTECTOMY) Anesthesia Reaction: No Hx Neurological Disorder: No (hypothyroid) Hx Respiratory Disorders: No Hx Cardiac Disorders: Yes (borderline HTN) Hx Psychiatric Problems: No Hx Miscellaneous Medical Probl: No Hx Alcohol Use: No Hx Substance Use: No Hx Tobacco Use: No Physical Exam Vitals Vital Signs Date Time Temp Pulse Resp B/P Pulse Ox O2 Delivery O2 Flow Rate FiO2 04/29/17 19:35 98.6 95 14 118/79 99 Room Air 04/29/17 16:40 97.3 98 18 136/81 98 Physical Exam Const: [] Head: Atraumatic Eyes: Normal Conjunctiva ENT: Normal External Ears, Nose and Mouth. Neck: Full range of motion..~ No meningismus. Resp: Clear to auscultation bilaterally Cardio: Regular rate and rhythm, no murmurs Abd: Soft, non tender, non distended. Normal bowel sounds Skin: No petechiae or rashes Back: No midline or flank tenderness Ext: No cyanosis, or edema Neur: Awake and alert Psych: Normal Mood and Affect Result Diagram: 04/29/17 1850 Results 24 hrs Laboratory Tests Test 04/29/17 17:55 04/29/17 18:50 Urine Color YELLOW Urine Clarity CLEAR Urine pH 6.0 Urine Specific [place] 1.010 Urine Ketones NEGATIVEmg/dL Urine Nitrite NEGATIVEmg/dL Urine Bilirubin NEGATIVEmg/dL Urine Urobilinogen NEGATIVEmg/dL Urine Leukocyte Esterase NEGATIVELeu/ul Urine Microscopic RBC > 182/HPF Urine Microscopic WBC 36/HPF Urine Bacteria FEW/HPF Urine Hemoglobin 3+mg/dL Urine Glucose NEGATIVEmg/dL Urine Total Protein NEGATIVEmg/dl White Blood Count 10.510^3/ul Red Blood Count 3.5710^6/ul Hemoglobin 10.8g/dl Hematocrit 32.7% Mean Corpuscular Volume 91.6fl Mean Corpuscular Hemoglobin 30.3pg Mean Corpuscular Hemoglobin Concent 33.0g/dl Red Cell Distribution Width 12.0% Platelet Count 30146^3/UL Mean Platelet Volume 11.4fl Neutrophils % 49.9% Lymphocytes % 40.1% Monocytes % 7.5% Eosinophils % 1.6% Basophils % 0.4% Nucleated Red Blood Cells % 0.0/100WBC Neutrophils # 5.310^3/ul Lymphocytes # 4.210^3/ul Monocytes # 0.810^3/ul Eosinophils # 0.210^3/ul Basophils # 0.010^3/ul Nucleated Red Blood Cells # 0.010^3/ul Procedures/MDM This is a 26-year-old female presenting to the emergency department with excessive vaginal bleeding for the past month. Patient is hemodynamically stable to be discharge home, no evidence of needing transfusion, there was no evidence of fibroids, . Patient's hemoglobin was around 10.3, I discussed with her to continue taking the ferrous sulfate. A pelvic ultrasound was done and did not show any evidence of any pathology. I discussed with her to return to her INTERMEDIATE MANAGER for further evaluation and treatment. She understands and agrees with Departure Diagnosis: Primary Impression: Excessive vaginal bleeding Condition: Stable Patient Instructions: Anemia, Iron Deficiency (Adult), Menorrhagia Referrals: [facility] (PCP) Additional Instructions: FOLLOW UP WITH YOUR PRIMARY CARE PHYSICIAN TOMORROW.Return to this facility if you are not improving as expected. Take all medicines as directed. Return to this facility if you are not improving as expected. JEEVAN NAVA PA-C Apr 29, 2017 20:48
== END 2017-04-29 19:36 | disposition home or self-care (01) ==
LOC: FTE 16:30
DX: N93.8 Other specified abnormal uterine and vaginal bleeding (principal); E03.9 Hypothyroidism, unspecified
CPT/HCPCS: 76830; 76856; 81001; 85025; 86850; 86900; 86901